=== PATIENT | male | born 1950 | race Caucasian/White ===

== ENCOUNTER 2018-02-14 06:27 | Day surgery (SDC) | payer MEDICARE, OTHER ==
[~2018-02-14 06:27] MED LIST: Sodium Chloride 0.9% 1000 ML 1,000 ML IV SCH
[2018-02-14] MEDS ORDERED: DIPRIVAN 200 MG/20 ML IV ONE (06:28)
[2018-02-14] MEDS ORDERED: Sodium Chloride 0.9% 1000 ML 1,000 ML ONE (07:00)
--- NOTE | 2018-02-14 09:35 | OP ---
SURGERY DATE/TIME: 02/14/2018 0851 PREOPERATIVE DIAGNOSIS: Abdominal pain. POSTOPERATIVE DIAGNOSIS: Normal colon. PROCEDURE: Colonoscopy. SURGEON: Dr. Vera. ANESTHESIA: MAC. Medications given by anesthesia department. HISTORY: The patient is a 67 year-old white male reporting he has abdominal pain mid periumbilical area that has not changed bowel habits. He reports that he has had previous colonoscopies which were normal. The patient was felt the need to have endoscopic evaluation. He was appraised of the risks of the procedure including the risk of perforation, phlebitis, untoward reaction to medication, bleeding and missed lesions. The patient verbalized his understanding and desired to have the procedure performed. DESCRIPTION OF PROCEDURE: The patient was given the medications by the anesthesia department. He had continuous pulse oximetry, ECG monitoring, intermittent blood pressure monitoring and tidal CO2 monitoring during the examination. He was placed in the left lateral decubitus position. A digital rectal examination was performed and revealed normal anal sphincter tone and no masses and normal prostate. The flexible Olympus pediatric colonoscope was used to intubate the rectum. A view of the colon was developed sequentially to the cecum. Upon insertion and withdrawal, including a retroflex view in the rectum, no mucosal lesions were encountered. The scope was removed from the patient who tolerated the procedure well and was sent back to OP recovery in good condition. The prep was noted to be fair to good.
[2018-02-14 09:43] VITALS: O2SAT 98
[2018-02-14 10:05] VITALS: BP 152/73; PULSE 50
== END 2018-02-14 10:21 | disposition home or self-care (01) ==
LOC: SDC 06:27
PROVIDERS: ATTEND Family Medicine
DX: R10.33 Periumbilical pain (principal)
CPT/HCPCS: J2704

== ENCOUNTER 2018-07-22 23:09 | Observation (INO) | payer MEDICARE, OTHER ==
--- NOTE | 2018-07-22 23:52 | ERPHSYRPT ---
- History of Present Illness Time Seen by Provider: 07/22/18 23:35 Historian: patient Exam Limitations: no limitations Patient Subjective Stated Complaint: Chest pain Triage Nursing Assessment: Patient brought into ER per EMS for complaints of chest pain. Patient states his chest pain is 0 now. Patient received Nitro X 1 and ASA 324mg per EMS upon arrival. Patient states chest pain started while at rest and lasted approximately 10 minutes. Patient A+O X 3. Patient's lungs noted to be clear A/P waqas. S1-S2 heart tones audible. Patient states he was seen today at [facility] ER for sinus problems and was prescribed Prednisone today, which he took around 1600. Physician History: 67-year-old white male with history of atherosclerotic coronary artery disease, migraines, stroke, diabetes type 2, high blood pressure, chronic back pain, fractures, osteoarthritis, anxiety, stage III kidney failure, pulmonary hypertension Patient arrives with complaint of anterior chest pain described as a dull pressure which began approximately 30 minutes prior to arrival he states he wasn 't really short of breath but he is anxious. He states that he has been seen at [facility] earlier today secondary to feeling of pressure in his left ear he was placed on prednisone he states he took his prednisone and he feels like his blood sugars had, up he stated they were around 325 at home. He states that he then began to have the above pain he took one nitroglycerin he was seen by the medics who gave him 4 baby aspirin will one nitroglycerin pain resolved after approximately 10 minutes. Currently patient is pain-free he has no nausea he is not short of breath at this time. Patient does state that he has been complaining of a rash of his lower extremities and chest and this is part of the reason he was given the prednisone. Past medical history includes cardiac stent, atherosclerotic coronary artery disease, migraines, stroke, diabetes type 2, high blood pressure, fracture of the patient's left knee, arthritis, anxiety, chronic back pain, stage III Kidney failure, pulmonary hypertension Past surgical history includes cardiac catheterization, orthopedic surgery l ( left knee meniscal repair), tonsillectomy Patient is chronically on oxycodone/acetaminophen as well as lorazepam Timing/Duration: today (30 minutes prior to arri) Activities at Onset: none Quality: dullness, pressure Location: substernal, other (anterior chest from breast to breast) Chest Pain Radiation: no radiation Severity of Pain-Max: moderate Severity of Pain-Current: none Modifying Factors: Improves With: other (patient had recently started prednisone today) Associated Symptoms: rash (Patient feels like he has had a rash on his lower extremities for several ), No nausea, No vomiting, No palpitations, No heartburn , No abdominal pain, No shortness of breath, No cough, No hurts to breathe, No diaphoresis, No chills, No fever, No fatigue, No weakness, No swelling/lump in chest, No syncope Prior Chest Pain/Cardiac Workup: cardiac cath (cardiac catheter with car) Nitro Today/Relief: 0.4 mg x 2 (nitroglycerin 0.4 mg at home, 0.4 mg per medics) Aspirin Treatment Today: 81 mg x 4, provided by EMS Allergies/Adverse Reactions: acetaminophen [From Vicodin] Allergy (Intermediate, Verified 07/22/18 23:31) Nausea and Vomiting hydrocodone bitartrate [From Vicodin] Allergy (Intermediate, Verified 07/22/18 23:31) Nausea and Vomiting Home Medications: Clopidogrel Bisulfate 75 mg [PLAVIX 75 MG Tablet] 75 mg PO DAILY 07/16/13 [History] Doxazosin Mesylate [Cardura] 4 mg PO TID 07/16/13 [History] Albuterol Sulfate [Ventolin] 5 mg IH Q4HPRN PRN 02/12/18 [History] Aspirin EC 81 mg [Ecotrin 81 mg] 81 mg PO DAILY 02/12/18 [History] Bosentan [Tracleer] 125 mg PO BID 02/12/18 [History] Fluticasone/Salmeterol Disc [Advair 250-50 Diskus 14 Dose] 1 each IH DAILY 02/12/18 [History] Glimepiride 4 mg [Amaryl 4 mg] 4 mg PO DAILY 02/12/18 [History] Hydralazine HCl 50 mg PO TID 02/12/18 [History] Insulin NPH Human Isophane [Novolin N] 12 unit SQ AC 02/12/18 [History] Isosorbide Mononitrate 10 mg PO BID 02/12/18 [History] Lorazepam [Ativan] 2 mg PO BID 02/12/18 [History] Montelukast Sodium 10 mg [Singulair 10 MG] 10 mg PO DAILY 02/12/18 [History] Oxycodone HCl/Acetaminophen [Oxycodone-Acetaminophen 10-325] 0.5 tablet PO BID 02/12/18 [History] Testosterone Undecanoate [Aveed] 0.5 mg IM WEEKLY 02/12/18 [History] Topiramate 100 mg [Topamax 100 MG] 100 mg PO DAILY 02/12/18 [History] Torsemide 10 mg PO DAILY 02/12/18 [History] Nitroglycerin 0.4 mg (Ed) [Nitrostat 0.4 MG (ED)] 0.4 mg SL STAT 02/13/18 [History] Acetaminophen [Tylenol] 325 mg PO Q8HPRN PRN 02/14/18 [History] Ferrous Sulfate [Iron] 325 mg PO BID 02/14/18 [History] Multivitamin [Multivitamins] 1 each PO DAILY 02/14/18 [History] Oxymetazoline HCl [Afrin] 15 ml NS DAILY 02/14/18 [History] Hx Tetanus, Diphtheria Vaccination/Date Given: Yes Hx Influenza Vaccination/Date Given: No Hx Pneumococcal Vaccination/Date Given: No Immunizations Up to Date: Yes - Review of Systems Constitutional: No Fever, No Chills Eyes: No Symptoms Ears, Nose, & Throat: Ear Pain (pressure sensation left ear for several weeks given prednisone for this at [facility] today) Respiratory: No Cough, No Dyspnea Cardiac: Chest Pain Abdominal/Gastrointestinal: No Abdominal Pain, No Nausea, No Vomiting, No Diarrhea Musculoskeletal: No Back Pain, No Neck Pain Skin: Rash (patient feels like he's had a rash on his lower legs and upper chest and back for several weeks) Neurological: No Dizziness, No Focal Weakness, No Sensory Changes Psychological: No Symptoms Endocrine: No Symptoms All Other Systems: Reviewed and Negative - Past Medical History Pertinent Past Medical History: Yes Neurological History: Migraines, Stroke ENT History: No Pertinent History Cardiac History: Hypertension, Other Respiratory History: Other Endocrine Medical History: Diabetes Type II Musculoskeletal History: Fractures, Osteoarthritis GI Medical History: No Pertinent History History: No Pertinent History Psycho-Social History: Anxiety Male Reproductive Disorders: No Pertinent History Other Medical History: stage 3 kidney failure (30-35%), pulmonary hypertension. Fractured L knee when he had a meniscus repair - Past Surgical History Past Surgical History: Yes Neuro Surgical History: No Pertinent History Cardiac: Cardiac Catheterization Respiratory: No Pertinent History Gastrointestinal: No Pertinent History Genitourinary: No Pertinent History Musculoskeletal: Orthopedic Surgery Male Surgical History: No Pertinent History Other Surgical History: tonsils,lt knee surgery - Social History Smoking Status: Former smoker Exposure to second hand smoke: No Drug Use: none Patient Lives Alone: No - Nursing Vital Signs Nursing Vital Signs: Initial Vital Signs Temperature 98.8 F 07/22/18 23:19 Pulse Rate 90 07/22/18 23:19 Respiratory Rate 17 07/22/18 23:19 Blood Pressure 186/78 07/22/18 23:19 O2 Sat by Pulse Oximetry 97 07/22/18 23:19 Pain Scale Pain Intensity 0 - Physical Exam General Appearance: no apparent distress, alert Eye Exam: PERRL/EOMI, eyes nml inspection Ears, Nose, Throat Exam: normal ENT inspection, moist mucous membranes Neck Exam: normal inspection, non-tender, supple, full range of motion Respiratory Exam: normal breath sounds, lungs clear, No respiratory distress Cardiovascular Exam: regular rate/rhythm, normal heart sounds, normal peripheral pulses, capillary refill <2 sec, No murmur, No friction rub, No tachycardia, No bradycardia, No irregular Gastrointestinal/Abdomen Exam: soft, No tenderness, No mass Back Exam: normal inspection, No CVA tenderness, No vertebral tenderness Extremity Exam: normal inspection, normal range of motion Neurologic Exam: alert, oriented x 3, cooperative, computer patternmaker II-XII nml as tested, normal mood/affect, sensation nml, No motor deficits Skin Exam: other (skin vague chronic skin changes lower extremities no obvious rash) SpO2 Interpretation: normal (96%) SpO2: 96 Oxygen Delivery: Room Air - Course Nursing assessment & vital signs reviewed: Yes EKG Interpreted by Me: RATE (90 bpm), NORMAL AXIS, Other (EKG: Sinus arrhythmia , 90 bpm, normal axis, no acute ST or T wave changes are noted, no old EKG for comparson) - Radiology Exams Chest X-ray Interpretation: Interpreted by me (no acute disease process noted) Ordered Tests: Active Orders 24 hr Category Date Time Status Accucheck STAT Care 07/22/18 23:37 Active Cell Builder STAT Care 07/22/18 23:36 Active EKG-ER Only STAT Care 07/22/18 23:35 Active IV Insertion STAT Care 07/22/18 23:35 Active Pulse Oximetry (ED) STAT Care 07/22/18 23:35 Active CHEST 1 VIEW (PORTABLE) Stat Exams 07/22/18 23:36 Taken AMYLASE Stat Lab 07/22/18 23:55 Completed CBC W DIFF Stat Lab 07/22/18 23:55 Completed CMP Stat Lab 07/22/18 23:55 Completed D-DIMER QUANTITATION Stat Lab 07/22/18 23:55 Completed LIPASE Stat Lab 07/22/18 23:55 Completed PROTIME WITH INR Stat Lab 07/22/18 23:55 Completed PTT Stat Lab 07/22/18 23:55 Completed TROPONIN Q3H Lab 07/22/18 23:55 Completed TROPONIN Q3H Lab 07/23/18 02:45 Ordered TROPONIN Q3H Lab 07/23/18 05:45 Ordered TROPONIN Q3H Lab 07/23/18 08:45 Ordered TROPONIN Q3H Lab 07/23/18 11:45 Ordered Lab/Rad Data: Laboratory Result Diagrams 07/22/18 23:55 07/22/18 23:55 Laboratory Results 07/22/18 07/22/18 07/22/18 Range/Units 23:55 23:55 23:55 WBC (4.0-10.5) K/mm3 RBC (4.1-5.6) M/mm3 Hgb (12.5-18.0) gm/dl Hct (42-50) % MCV (78-100) fl MCH (26-32) pg MCHC (32-36) g/dl RDW (11.5-14.0) % Plt Count (150-450) K/mm3 MPV (6-9.5) fl Gran % (36.0-66.0) % Eos # (Auto) (0-0.5) Absolute Lymphs (auto) (1.0-4.6) Absolute Monos (auto) (0.0-1.3) Lymphocytes % (24.0-44.0) % Monocytes % (0.0-12.0) % Eosinophils % (0.00-5.0) % Basophils % (0.0-0.4) % Absolute Granulocytes (1.4-6.9) Basophils # (0-0.4) PT 12.5 (8.83-12.87) SECONDS INR 1.07 (0.8-3.0) APTT 30.9 (24.1-36.1) SECONDS D-Dimer 1096 H* (215-500) ng/mL Sodium (137-145) mmol/L Potassium (3.5-5.1) mmol/L Chloride (98-107) mmol/L Carbon Dioxide (22-30) mmol/L Anion Gap (5-15) MEQ/L BUN (9-20) mg/dL Creatinine (0.66-1.25) mg/dL Estimated GFR ML/MIN Glucose (74-106) mg/dL Calcium (8.4-10.2) mg/dL Total Bilirubin (0.2-1.3) mg/dL AST (17-59) U/L ALT (0-50) U/L Alkaline Phosphatase (38-126) U/L Troponin I 0.013 (0.000-0.034) ng/mL Serum Total Protein (6.3-8.2) g/dL Albumin (3.5-5.0) g/dL Amylase 86 (30-110) U/L Lipase 118 (23-300) U/L 07/22/18 07/22/18 Range/Units 23:55 23:55 WBC 6.1 (4.0-10.5) K/mm3 RBC 3.04 L (4.1-5.6) M/mm3 Hgb 9.3 L (12.5-18.0) gm/dl Hct 27.9 L (42-50) % MCV 91.8 (78-100) fl MCH 30.5 (26-32) pg MCHC 33.3 (32-36) g/dl RDW 13.4 (11.5-14.0) % Plt Count 135 L (150-450) K/mm3 MPV 12.1 H (6-9.5) fl Gran % 92.1 H (36.0-66.0) % Eos # (Auto) 0.02 (0-0.5) Absolute Lymphs (auto) 0.40 L (1.0-4.6) Absolute Monos (auto) 0.05 (0.0-1.3) Lymphocytes % 6.6 L (24.0-44.0) % Monocytes % 0.8 (0.0-12.0) % Eosinophils % 0.3 (0.00-5.0) % Basophils % 0.2 (0.0-0.4) % Absolute Granulocytes 5.61 (1.4-6.9) Basophils # 0.01 (0-0.4) PT (8.83-12.87) SECONDS INR (0.8-3.0) APTT (24.1-36.1) SECONDS D-Dimer (215-500) ng/mL Sodium 137 (137-145) mmol/L Potassium 5.1 (3.5-5.1) mmol/L Chloride 107 (98-107) mmol/L Carbon Dioxide 19 L (22-30) mmol/L Anion Gap 15.9 H (5-15) MEQ/L BUN 47 H (9-20) mg/dL Creatinine 3.22 H (0.66-1.25) mg/dL Estimated GFR 20.4 ML/MIN Glucose 330 H (74-106) mg/dL Calcium 8.9 (8.4-10.2) mg/dL Total Bilirubin 0.40 (0.2-1.3) mg/dL AST 27 (17-59) U/L ALT 26 (0-50) U/L Alkaline Phosphatase 69 (38-126) U/L Troponin I (0.000-0.034) ng/mL Serum Total Protein 6.5 (6.3-8.2) g/dL Albumin 4.0 (3.5-5.0) g/dL Amylase (30-110) U/L Lipase (23-300) U/L - Progress Progress: improved Air Movement: fair Progress Note: 07/22/18 23:55 This is a 67-year-old white male with history of migraines, stroke, diabetes type 2, high blood pressure, atherosclerotic coronary artery disease, arthritis , anxiety, stage III renal failure, pulmonary hypertension, chronic back pain He states that he has been experiencing pressure in the left side of his ear as well as he feels like he has a rash on his lower extremities upper chest and back. He states that he presented to [facility] and was placed on steroids he was a apparently referred to a your nose and throat specialist. He states that he took his prednisone today than this evening he began to feel as if his heart was a running fast he states he felt like he feels 1 his blood sugars were elevated and noticed that his blood sugar was around 325. He states that he then began to have symptoms of a pressure in his anterior chest he states he sat down this did not go away he states he then took a nitroglycerin and he had his summoned the medics. The patient was given aspirin 3 124 mg by the medics and a second nitroglycerin patient states the pain went away within 10 minutes and was gone before he arrives. He states he really was not short of breath but he did feel anxiety he does have a history of atherosclerotic coronary artery disease he has not had a heart attack he does state that he had a stent placed. Currently the patient appears to be stable. EKG remarkable for sinus arrhythmia 90 beats for minute normal axis no acute ST or T wave changes are noted there are no old EKGs for comparison. CBC CMP troponin amylase lipase chest x-ray EKG PT PTT d-dimer have been ordered. Patient appears to be stable at this time. 07/23/18 01:08 Patient with no further pain. Patient's troponin within normal limits of 0.013 patient's chemistry is remarkable for a glucose of 3:30 BUN 47 creatinine 3.22 , GFR is 20.4 Sodium is 137 potassium 5.1 chloride 107. Amylase and lipase are within normal limits Patient's white cells 6.1 hemoglobin 9.3 hematocrit 27.9 Unfortunately patient's d-dimer is 1096 It is noted however that patient does have chronic renal failure, patient does not have signs or symptoms of pulmonary embolism. .. Chest x-ray no acute disease process noted. I've discussed the patient's case with Dr. Vera Will go ahead and place patient on observation telemetry obtain serial troponins. Do not feel that patient has signs or symptoms of pulmonary embolism and will not place patient on Lovenox at this time this is discussed with Dr. Vera. We'll not perform CTA, on this patient secondary to GFR of 20. Patient appears to be stable. Will go ahead and admit patient to observation. It is noted the patient had a glucose of 3:30 on his chemistry and an Accu-Chek of 350 however he states he took insulin prior to arrival. Will place patient on every 4 hour Accu-Cheks begin with the low dose sliding scale insulin coverage. - Departure Time of Disposition: 01:12 Departure Disposition: Observation Clinical Impression: Hyperglycemia, History of chronic renal failure Chest pain Qualifiers: Chest pain type: unspecified Qualified Code(s): R07.9 - Chest pain, unspecified Condition: Fair Critical Care Time: No Referrals: JAVIER VERA [Primary Care Provider] -
[2018-07-22 23:59] LABS: BASOPHIL % 0.2 % (0.0-0.4); Basophil (Absolute #) 0.01 (0-0.4); Eosinophil % 0.3 % (0.00-5.0); Eosinophil (Absolute #) 0.02 (0-0.5); Granulocyte Absolute (ANC) 5.61 (1.4-6.9); Granulocytes % 92.1 % (36.0-66.0); Hematocrit 27.9 % (42-50); Hemoglobin 9.3 gm/dl (12.5-18.0); Lymphocytes % 6.6 % (24.0-44.0); Mean Cell Volume 91.8 fl (78-100); Mean Corpuscular Hgb Concent. 33.3 g/dl (32-36); Mean Platelet Volume 12.1 fl (6-9.5); Monocyte (Absolute #) 0.05 (0.0-1.3); Monocytes % 0.8 % (0.0-12.0); Platelet Count 135 K/mm3 (150-450); Red Blood Count 3.04 M/mm3 (4.1-5.6); Red Cell Distribution Width 13.4 % (11.5-14.0); White Blood Count 6.1 K/mm3 (4.0-10.5)
[2018-07-23 00:02] LABS: Mean Corpuscular Hemoglobin 30.5 pg (26-32)
[2018-07-23 00:29] LABS: INR 1.07 (0.8-3.0)
[2018-07-23 00:31] LABS: PTT 30.9 SECONDS (24.1-36.1)
[2018-07-23 00:34] LABS: AMYLASE 86 U/L (30-110); ANION GAP 15.9 MEQ/L (5-15); BILIRUBIN,TOTAL 0.4 mg/dL (0.2-1.3); Calcium 8.9 mg/dL (8.4-10.2); Creatinine 1 3.22 mg/dL (0.66-1.25); LIPASE 118 U/L (23-300); Potassium 5.1 mmol/L (3.5-5.1); Total Protein 6.5 g/dL (6.3-8.2)
[2018-07-23] MEDS ORDERED: NovoLOG Insulin SQ PRN (01:40)
[2018-07-23] MEDS ORDERED: Ativan 1 MG PO PRN (01:40)
[2018-07-23] MEDS ORDERED: Sodium Chloride 0.9% 1000 ML 1,000 ML IV SCH (01:40)
[2018-07-23 03:47] LABS: Slide Review 1 YES
[2018-07-23 05:50] LABS: BASOPHIL % 0.2 % (0.0-0.4); Basophil (Absolute #) 0.02 (0-0.4); Eosinophil % 0.2 % (0.00-5.0); Eosinophil (Absolute #) 0.02 (0-0.5); Granulocyte Absolute (ANC) 7.49 (1.4-6.9); Granulocytes % 85.5 % (36.0-66.0); Hematocrit 27.2 % (42-50); Hemoglobin 9.1 gm/dl (12.5-18.0); Lymphocyte (Absolute #) 0.67 (1.0-4.6); Lymphocytes % 7.6 % (24.0-44.0); Mean Cell Volume 91.6 fl (78-100); Mean Corpuscular Hemoglobin 30.6 pg (26-32); Mean Corpuscular Hgb Concent. 33.5 g/dl (32-36); Mean Platelet Volume 12.4 fl (6-9.5); Monocyte (Absolute #) 0.57 (0.0-1.3); Monocytes % 6.5 % (0.0-12.0); Platelet Count 156 K/mm3 (150-450); Red Blood Count 2.97 M/mm3 (4.1-5.6); Red Cell Distribution Width 13.4 % (11.5-14.0); White Blood Count 8.8 K/mm3 (4.0-10.5)
[2018-07-23 06:14] LABS: ALBUMIN 3.6 g/dL (3.5-5.0); ANION GAP 13.5 MEQ/L (5-15); BILIRUBIN,TOTAL 0.4 mg/dL (0.2-1.3); Calcium 8.9 mg/dL (8.4-10.2); Creatinine 1 3.18 mg/dL (0.66-1.25); Potassium 5.1 mmol/L (3.5-5.1); Total Protein 6.2 g/dL (6.3-8.2)
[2018-07-23 07:14] VITALS: BP 149/65; PULSE 50; O2SAT 96
--- NOTE | 2018-07-23 07:58 | PCM.DCORD ---
- Discharge Discharge Date: 07/23/18 Disposition: Home, Self-Care Condition: Stable Prescriptions: Continue Doxazosin Mesylate [Cardura] 8 mg PO BID Clopidogrel Bisulfate 75 mg [PLAVIX 75 MG Tablet] 75 mg PO DAILY Testosterone Undecanoate [Aveed] 0.5 mg IM WEEKLY Lorazepam [Ativan] 2 mg PO BID Topiramate 100 mg [Topamax 100 MG] 100 mg PO DAILY Montelukast Sodium 10 mg [Singulair 10 MG] 10 mg PO DAILY Glimepiride 4 mg [Amaryl 4 mg] 2 mg PO DAILY Torsemide 10 mg PO DAILY Hydralazine HCl 50 mg PO TID Isosorbide Mononitrate 10 mg PO BID Bosentan [Tracleer] 125 mg PO BID Aspirin EC 81 mg [Ecotrin 81 mg] 81 mg PO DAILY Albuterol Sulfate [Ventolin] 5 mg IH Q4HPRN PRN PRN Reason: Shortness Of Breath/Wheezing Fluticasone/Salmeterol Disc [Advair 250-50 Diskus 14 Dose] 1 each IH BID Oxycodone HCl/Acetaminophen [Oxycodone-Acetaminophen 10-325] 0.5 tablet PO BID PRN PRN Reason: Pain Insulin NPH Human Isophane [Novolin N] 10 unit SQ DAILY Nitroglycerin 0.4 mg (Ed) [Nitrostat 0.4 MG (ED)] 0.4 mg SL STAT Ferrous Sulfate [Iron] 65 mg PO BID Erenumab-Aooe [Aimovig Autoinjector (2 Pack)] 70 mg SQ UD Ranitidine HCl 300 mg PO DAILY Ranolazine 500 MG [Ranexa 500 MG] 50 mg PO BID Additional Instructions: Follow up with Doping Supervisor today or tomorrow Follow up with: JAVIER ELLER [Primary Care Provider] - 1 Week
[2018-07-23] MEDS ORDERED: OXYCODONE-ACETAMINOPHEN 10-325 PO PRN (08:50)
[2018-07-23] MEDS ORDERED: VENTOLIN 20 ML BOTTLE IH PRN (08:50)
--- NOTE | 2018-07-23 08:55 | XRAY ---
Indication: Chest pain. Comparison: May 09, 2015. Portable apical lordotic chest remains clear. Heart is not enlarged. Bony thorax intact again with mild degenerative changes. No new/acute findings.
[2018-07-23] MEDS ORDERED: AMARYL 4 MG PO SCH (09:00)
[2018-07-23] MEDS ORDERED: Nitrostat 0.4 MG (ED) SL SCH (09:00)
[2018-07-23] MEDS ORDERED: TESTOSTERONE UNDECANOATE IM SCH (09:00)
[2018-07-23] MEDS ORDERED: ERENUMAB AOOE 70 MG SQ SCH (09:00)
[2018-07-23] MEDS ORDERED: Nitrostat 0.4 MG Tablet SL PRN (09:19)
[2018-07-23] MEDS ORDERED: PROVENTIL 2.5 MG/3 ML NEB IH PRN (09:22)
[2018-07-23] MEDS ORDERED: MEDICATION INTERVENTION MC SCH (09:30)
[2018-07-23] MEDS ORDERED: PLAVIX 75 MG Tablet PO SCH (10:00)
[2018-07-23] MEDS ORDERED: Singulair 10 MG PO SCH (10:00)
[2018-07-23] MEDS ORDERED: TORSEMIDE 10 MG PO SCH (10:00)
[2018-07-23] MEDS ORDERED: ADVAIR 250-50 DISKUS 14 DOSE IH SCH (10:00)
[2018-07-23] MEDS ORDERED: ISORDIL PO SCH (10:00)
[2018-07-23] MEDS ORDERED: NON-FORMULARY ITEM (Ranitidine Hcl [Ranitidine Hcl] 300 MG) PO SCH (10:00)
[2018-07-23] MEDS ORDERED: Pepcid 20 MG PO SCH (10:00)
[2018-07-23] MEDS ORDERED: monoKET 20 MG PO SCH (10:00)
[2018-07-23] MEDS ORDERED: ECOTRIN 81 MG PO SCH ×2 (10:00)
[2018-07-23] MEDS ORDERED: CARDURA 2 MG PO SCH (10:00)
[2018-07-23] MEDS ORDERED: Topamax 100 MG PO SCH (10:00)
[2018-07-23] MEDS ORDERED: DEMADEX 20 MG PO SCH (10:00)
[2018-07-23] MEDS ORDERED: NON-FORMULARY ITEM (Hydralazine Hcl [Hydralazine Hcl] 50 MG) PO SCH (10:00)
[2018-07-23] MEDS ORDERED: Ativan 1 MG PO SCH (10:00)
[2018-07-23] MEDS ORDERED: ISOSORBIDE MONONITRATE 10 MG PO SCH (10:00)
[2018-07-23] MEDS ORDERED: Ranexa 500 MG PO SCH (10:00)
[2018-07-23] MEDS ORDERED: Advair Hfa 115/21 Common canister IH SCH (10:00)
[2018-07-23] MEDS ORDERED: NON-FORMULARY ITEM (Lorazepam [Ativan] 2 MG) PO SCH (10:00)
[2018-07-23] MEDS ORDERED: FEOSOL 325 MG PO SCH (10:00)
[2018-07-23] MEDS ORDERED: BOSENTAN 125 MG PO SCH (10:00)
[2018-07-23] MEDS ORDERED: Novolin N SQ SCH (10:00)
[2018-07-23] MEDS ORDERED: Apresoline 25 MG TABLET PO SCH (10:00)
== END 2018-07-23 09:45 | disposition home or self-care (01) ==
LOC: ED 23:09 → MED SURG 07-23 01:37
PROVIDERS: ADMIT Family Medicine; ATTEND Family Medicine
DX: R07.9 Chest pain, unspecified (principal); I25.10 Atherosclerotic heart disease of native coronary artery without angina pectoris; E11.9 Type 2 diabetes mellitus without complications; M19.90 Unspecified osteoarthritis, unspecified site; F41.9 Anxiety disorder, unspecified; M54.9 Dorsalgia, unspecified; G89.29 Other chronic pain; I12.9 Hypertensive chronic kidney disease with stage 1 through stage 4 chronic kidney disease, or unspecified chronic kidney disease; N18.3 Chronic kidney disease, stage 3 (moderate); Z86.73 Personal history of transient ischemic attack (TIA), and cerebral infarction without residual deficits; Z79.4 Long term (current) use of insulin
CPT/HCPCS: 36415; 71045; 80053; 82150; 82962; 83036; 83690; 84484; 85025; 85379; 85610; 85730; 93005; 93041; 93268; 94760; 99285; A9270-GY; G0378

== ENCOUNTER 2018-12-16 23:18 | Emergency (ER) | payer MEDICARE, OTHER ==
[2018-12-16] MEDS ORDERED: DUONEB 0.5-3 MG/3 ml Neb IH ONE (23:45)
[2018-12-16 23:56] LABS: BASOPHIL % 0.6 % (0.0-0.4); Basophil (Absolute #) 0.04 (0-0.4); Eosinophil % 7.8 % (0.00-5.0); Eosinophil (Absolute #) 0.51 (0-0.5); Granulocyte Absolute (ANC) 4.62 (1.4-6.9); Granulocytes % 70.2 % (36.0-66.0); Hematocrit 25.2 % (42-50); Hemoglobin 8.3 gm/dl (12.5-18.0); Lymphocyte (Absolute #) 0.85 (1.0-4.6); Lymphocytes % 12.9 % (24.0-44.0); Mean Corpuscular Hgb Concent. 32.9 g/dl (32-36); Mean Platelet Volume 12.3 fl (6-9.5); Monocyte (Absolute #) 0.56 (0.0-1.3); Monocytes % 8.5 % (0.0-12.0); Platelet Count 131 K/mm3 (150-450); Red Blood Count 2.68 M/mm3 (4.1-5.6); Red Cell Distribution Width 12.5 % (11.5-14.0); White Blood Count 6.6 K/mm3 (4.0-10.5)
[2018-12-16 23:59] LABS: Mean Corpuscular Hemoglobin 30.9 pg (26-32)
[2018-12-17 00:04] LABS: ALBUMIN 4.2 g/dL (3.5-5.0); ANION GAP 13.3 MEQ/L (5-15); BILIRUBIN,TOTAL 0.4 mg/dL (0.2-1.3); Calcium 9.5 mg/dL (8.4-10.2); Creatinine 1 3.26 mg/dL (0.66-1.25); Potassium 4.7 mmol/L (3.5-5.1); Total Protein 7.1 g/dL (6.3-8.2)
--- NOTE | 2018-12-17 00:05 | ERPHSYRPT ---
- History of Present Illness Time Seen by Provider: 12/16/18 23:30 Source: patient Patient Subjective Stated Complaint: went to [facility] yesterday was given medication patient has been fighting a cold for about 3 weeks says its g etting worse nad the medications they gave him yesterday arent helping Triage Nursing Assessment: patient alert and oreitnedx3, able to ambulate by self, gait is steady, lung sounds buialteral some crackles , intermittant moist cough, , pulse equal bialteral radius, no edema noted, skin warm dry and intact. pupils perrla2, throat was pink no swelling or blisters noted. Physician History: 68 y/o diabetic white male presents with 3 week h/o flu like sx including cough and sore throat. [facility] to [facility] yesterday. given a steroid injection, rx for tessalon perles, and cefdinir anitbx. sx not much better. pt states his reaction to hydrocodone in n/v. pt takes oxycodone chronically for migraine headaches. pt does have chest burning with coughing. pt has a h/o recurrent bronchitis Timing/Duration: week(s) (3) Cough Quality/Degree: mild, dry cough Possible Cause: occasional episodes Modifying Factors: Improves With: coughing Associated Symptoms: cough, shortness of breath (mild) Allergies/Adverse Reactions: acetaminophen [From Vicodin] Allergy (Intermediate, Verified 07/22/18 23:31) Nausea and Vomiting hydrocodone bitartrate [From Vicodin] Allergy (Intermediate, Verified 07/22/18 23:31) Nausea and Vomiting Home Medications: Clopidogrel Bisulfate 75 mg [PLAVIX 75 MG Tablet] 75 mg PO DAILY 07/16/13 [History] Doxazosin Mesylate [Cardura] 8 mg PO BID 07/16/13 [History] Albuterol Sulfate [Ventolin] 5 mg IH Q4HPRN PRN 02/12/18 [History] Aspirin EC 81 mg [Ecotrin 81 mg] 81 mg PO DAILY 02/12/18 [History] Bosentan [Tracleer] 125 mg PO BID 02/12/18 [History] Fluticasone/Salmeterol Disc [Advair 250-50 Diskus 14 Dose] 1 each IH BID 02/12/18 [History] Glimepiride 4 mg [Amaryl 4 mg] 2 mg PO DAILY 02/12/18 [History] Hydralazine HCl 50 mg PO TID 02/12/18 [History] Insulin NPH Human Isophane [Novolin N] 10 unit SQ DAILY 02/12/18 [History] Isosorbide Mononitrate 10 mg PO BID 02/12/18 [History] Lorazepam [Ativan] 2 mg PO BID 02/12/18 [History] Montelukast Sodium 10 mg [Singulair 10 MG] 10 mg PO DAILY 02/12/18 [History] Oxycodone HCl/Acetaminophen [Oxycodone-Acetaminophen 10-325] 0.5 tablet PO BID PRN 02/12/18 [History] Testosterone Undecanoate [Aveed] 0.5 mg IM WEEKLY 02/12/18 [History] Topiramate 100 mg [Topamax 100 MG] 100 mg PO DAILY 02/12/18 [History] Torsemide 10 mg PO DAILY 02/12/18 [History] Nitroglycerin 0.4 mg (Ed) [Nitrostat 0.4 MG (ED)] 0.4 mg SL STAT 02/13/18 [History] Ferrous Sulfate [Iron] 65 mg PO BID 02/14/18 [History] Erenumab-Aooe [Aimovig Autoinjector (2 Pack)] 70 mg SQ UD 07/23/18 [History] Ranitidine HCl 300 mg PO DAILY 07/23/18 [History] Ranolazine 500 MG [Ranexa 500 MG] 50 mg PO BID 07/23/18 [History] Hx Tetanus, Diphtheria Vaccination/Date Given: Yes Hx Influenza Vaccination/Date Given: Yes Hx Pneumococcal Vaccination/Date Given: Yes Immunizations Up to Date: Yes - Review of Systems Constitutional: No Symptoms Eyes: No Symptoms Ears, Nose, & Throat: Hoarse, Other (sore throat) Respiratory: Cough, Dyspnea (mild) Cardiac: No Symptoms Abdominal/Gastrointestinal: No Symptoms Genitourinary Symptoms: No Symptoms Musculoskeletal: No Symptoms Skin: No Symptoms Neurological: No Symptoms Psychological: No Symptoms Endocrine: No Symptoms Hematologic/Lymphatic: No Symptoms Immunological/Allergic: No Symptoms All Other Systems: Reviewed and Negative - Past Medical History Pertinent Past Medical History: Yes Neurological History: Migraines, Stroke ENT History: No Pertinent History Cardiac History: Hypertension, Other Respiratory History: Other Endocrine Medical History: Diabetes Type II Musculoskeletal History: Fractures, Osteoarthritis GI Medical History: No Pertinent History History: No Pertinent History Psycho-Social History: Anxiety Male Reproductive Disorders: No Pertinent History Other Medical History: stage 3 kidney failure (30-35%), pulmonary hypertension. Fractured L knee when he had a meniscus repair - Past Surgical History Past Surgical History: Yes Neuro Surgical History: No Pertinent History Cardiac: Cardiac Catheterization, Cardiac Stent Respiratory: No Pertinent History Gastrointestinal: No Pertinent History Genitourinary: No Pertinent History Musculoskeletal: Orthopedic Surgery Male Surgical History: No Pertinent History Other Surgical History: tonsils,lt knee surgery, x1 cardiac stent, knee replacement right knee, right shoulder rotator cuff sx - Social History Smoking Status: Never smoker Exposure to second hand smoke: No Drug Use: none Patient Lives Alone: No - Nursing Vital Signs Nursing Vital Signs: Initial Vital Signs Temperature 98.5 F 12/16/18 23:19 Pulse Rate 72 12/16/18 23:19 Respiratory Rate 20 12/16/18 23:19 Blood Pressure 203/78 12/16/18 23:19 O2 Sat by Pulse Oximetry 99 12/16/18 23:19 Pain Scale Pain Intensity 0 - Physical Exam General Appearance: mild distress, alert, anxiety Eye Exam: PERRL/EOMI, eyes nml inspection Ears, Nose, Throat Exam: normal ENT inspection, moist mucous membranes Neck Exam: normal inspection, non-tender, supple, full range of motion Respiratory Exam: normal breath sounds, lungs clear, airway intact, No chest tenderness, No respiratory distress Cardiovascular Exam: regular rate/rhythm, normal heart sounds, normal peripheral pulses Gastrointestinal/Abdomen Exam: soft, normal bowel sounds, No tenderness Rectal Exam: not done Back Exam: normal inspection, normal range of motion, No CVA tenderness, No vertebral tenderness Extremity Exam: normal inspection, normal range of motion, pelvis stable Neurologic Exam: alert, oriented x 3, cooperative, azure developer II-XII nml as tested Skin Exam: normal color, warm, dry Lymphatic Exam: No adenopathy SpO2 Interpretation: normal SpO2: 99 O2 Delivery: Room Air - Course Nursing assessment & vital signs reviewed: Yes EKG Interpreted by Me: RATE (69), Sinus Rhythm, NORMAL AXIS, NORMAL INTERVALS, NORMAL QRS, Non-specific ST Changes, Other (no change compared to ekg dated ) Ordered Tests: Active Orders 24 hr Category Date Time Status CHEST 1 VIEW (PORTABLE) Stat Exams 12/16/18 23:33 Taken CBC W DIFF Stat Lab 12/16/18 23:33 Completed CMP Stat Lab 12/16/18 23:34 Completed Peak Expiratory Flow Rate ONCE RT 12/17/18 00:23 Active Respiratory Nebulizer STAT RT 12/16/18 23:45 Active Respiratory Therapy Assessment DAILY RT 12/17/18 00:23 Active Medication Summary Generic Name Dose Route Start Last Admin Trade Name Freq PRN Reason Stop Dose Admin Ceftriaxone Sodium/Dextrose 1 g in 50 mls @ 100 mls/hr 12/17/18 00:13 00:24 Rocephin 1 Gm-D5w 50 Ml Bag IV 12/17/18 00:42 50 mls/hr STAT STA 50 mls/hr Administration Sodium Chloride 500 mls @ 500 mls/hr 12/17/18 00:14 12/17/18 00:25 Sodium Chloride 0.9% 500 Ml IV 12/17/18 01:13 500 mls/hr .Q1H ONE Administration Discontinued Medications Generic Name Dose Route Start Last Admin Trade Name Freq PRN Reason Stop Dose Admin Acetaminophen/Codeine Phosphate 10 ml 12/17/18 00:15 Tylenol W/ Codeine 5 Ml Ud Cup PO 12/17/18 00:16 STAT ONE Albuterol/Ipratropium 3 ml 12/16/18 23:45 12/17/18 00:17 Duoneb 0.5-3 Mg/3 Ml Neb IH 12/16/18 23:46 3 ml STAT ONE Administration Albuterol/Ipratropium Confirm 12/17/18 00:16 Duoneb 0.5-3 Mg/3 Ml Neb Administered 12/17/18 00:17 Dose 3 ml IH .STK-MED ONE Ceftriaxone Sodium/Dextrose Confirm 12/17/18 00:14 Rocephin 1 Gm-D5w 50 Ml Bag Administered 12/17/18 00:15 Dose 1 g in 50 mls @ ud IV .STK-MED ONE Sodium Chloride Confirm 12/17/18 00:14 Sodium Chloride 0.9% 500 Ml Administered 12/17/18 00:15 Dose 500 mls @ ud IV .STK-MED ONE Methylprednisolone Sodium Succinate Confirm 12/17/18 00:13 Solu-Medrol 125 Mg Administered 12/17/18 00:14 Dose 125 mg .ROUTE .STK-MED ONE Methylprednisolone Sodium Succinate 125 mg 12/17/18 00:14 12/17/18 00:25 Solu-Medrol 125 Mg IV 12/17/18 00:15 125 mg STAT ONE Administration Ondansetron HCl Confirm 12/17/18 00:13 Zofran 4 Mg/2 Ml Vial Administered 12/17/18 00:14 Dose 4 mg .ROUTE .STK-MED ONE Ondansetron HCl 4 mg 12/17/18 00:14 12/17/18 00:25 Zofran 4 Mg/2 Ml Vial IV 12/17/18 00:15 4 mg STAT ONE Administration Lab/Rad Data: Laboratory Result Diagrams 12/16/18 23:33 12/16/18 23:34 Laboratory Results 12/16/18 12/16/18 12/16/18 Range/Units 23:45 23:34 23:33 WBC 6.6 (4.0-10.5) K/mm3 RBC 2.68 L (4.1-5.6) M/mm3 Hgb 8.3 L (12.5-18.0) gm/dl Hct 25.2 L (42-50) % MCV 94.0 (78-100) fl MCH 30.9 (26-32) pg MCHC 32.9 (32-36) g/dl RDW 12.5 (11.5-14.0) % Plt Count 131 L (150-450) K/mm3 MPV 12.3 H (6-9.5) fl Gran % 70.2 H (36.0-66.0) % Eos # (Auto) 0.51 H (0-0.5) Absolute Lymphs (auto) 0.85 L (1.0-4.6) Absolute Monos (auto) 0.56 (0.0-1.3) Lymphocytes % 12.9 L (24.0-44.0) % Monocytes % 8.5 (0.0-12.0) % Eosinophils % 7.8 H (0.00-5.0) % Basophils % 0.6 (0.0-0.4) % Absolute Granulocytes 4.62 (1.4-6.9) Basophils # 0.04 (0-0.4) Sodium 140 (137-145) mmol/L Potassium 4.7 (3.5-5.1) mmol/L Chloride 112 H (98-107) mmol/L Carbon Dioxide 19 L (22-30) mmol/L Anion Gap 13.3 (5-15) MEQ/L BUN 43 H (9-20) mg/dL Creatinine 3.26 H (0.66-1.25) mg/dL Estimated GFR 20.1 ML/MIN Glucose 171 H (74-106) mg/dL Calcium 9.5 (8.4-10.2) mg/dL Total Bilirubin 0.40 (0.2-1.3) mg/dL AST 23 (17-59) U/L ALT 18 (0-50) U/L Alkaline Phosphatase 81 (38-126) U/L Serum Total Protein 7.1 (6.3-8.2) g/dL Albumin 4.2 (3.5-5.0) g/dL Influenza Type A Ag NEGATIVE (NEGATIVE) Influenza Type B Ag NEGATIVE (NEGATIVE) RSV (PCR) NEGATIVE (Negative) - Progress Progress: improved, re-examined Air Movement: good Progress Note: 12/17/18 00:20 cxr-no definite acute infiltrate; mild cardiomegaly, no pleural effusions 12/17/18 00:26 i reviewed pts old labs. no sig change in new labs compared to old. Counseled pt/family regarding: lab results, diagnosis, need for follow-up, rad results - Departure Time of Disposition: 00:30 Departure Disposition: Home Clinical Impression: Cough, Bronchitis, Anemia Condition: Stable Critical Care Time: No Referrals: JAVIER ELLER [Primary Care Provider] - Additional Instructions: drink plenty of fluids. continue your cefdinir. follow up with primary doctor for persistent symptoms. use tylenol with codeine elixir if effective for cough and tolerating well. Prescriptions: Codeine Phosphate/APAP [Tylenol W/ Codeine 118 ml] 10 ml PO Q8H PRN PRN #120 ml PRN Reason: Pain Prednisone 10 mg [Deltasone 10 mg] 10 mg PO BID #4 tablet
[2018-12-17] MEDS ORDERED: Zofran 4 MG/2 ML VIAL ONE (00:13)
[2018-12-17] MEDS ORDERED: solu-MEDROL 125 MG ONE (00:13)
[2018-12-17] MEDS ORDERED: ROCEPHIN 1 Gm-D5w 50 ml Bag** 1 G/50 ML IVPB IV STA (00:13)
[2018-12-17] MEDS ORDERED: ROCEPHIN 1 Gm-D5w 50 ml Bag** 1 G/50 ML IVPB IV ONE (00:14)
[2018-12-17] MEDS ORDERED: Sodium Chloride 0.9% 500 ML 500 ML IV ONE ×2 (00:14)
[2018-12-17] MEDS ORDERED: Zofran 4 MG/2 ML VIAL IV ONE (00:14)
[2018-12-17] MEDS ORDERED: solu-MEDROL 125 MG IV ONE (00:14)
[2018-12-17] MEDS ORDERED: TYLENOL W/ CODEINE 5 ML UD CUP PO ONE (00:15)
[2018-12-17] MEDS ORDERED: DUONEB 0.5-3 MG/3 ml Neb IH ONE (00:16)
[2018-12-17 00:24] VITALS: BP 168/70
[2018-12-17 00:24] LABS: INFLUENZA A NEGATIVE (NEGATIVE); INFLUENZA B NEGATIVE (NEGATIVE); RESPIRATORY SYNCTIAL VIRUS NEGATIVE (Negative)
[2018-12-17] MEDS ORDERED: TYLENOL W/ CODEINE 5 ML UD CUP ONE (00:27)
[2018-12-17 01:00] VITALS: PULSE 65; O2SAT 98
--- NOTE | 2018-12-17 08:52 | XRAY ---
Indication: Short of breath. Comparison: July 22, 2018. Portable apical lordotic chest remains clear. Heart and mediastinal structures within normal limits. Bony thorax intact again with mild degenerative changes. No new/acute findings.
== END 2018-12-17 00:59 | disposition home or self-care (01) ==
LOC: ED 23:18
DX: R05 Cough (principal); J40 Bronchitis, not specified as acute or chronic; D64.9 Anemia, unspecified; I12.9 Hypertensive chronic kidney disease with stage 1 through stage 4 chronic kidney disease, or unspecified chronic kidney disease; N18.3 Chronic kidney disease, stage 3 (moderate); E11.9 Type 2 diabetes mellitus without complications; M19.90 Unspecified osteoarthritis, unspecified site; Z86.73 Personal history of transient ischemic attack (TIA), and cerebral infarction without residual deficits; F41.9 Anxiety disorder, unspecified; Z79.899 Other long term (current) drug therapy
CPT/HCPCS: 36415; 71045; 80053; 85025; 87631; 94150; 94640; 96360; 96365; 96374; 96375; 99284; J0696; J2405; J2930; A9270-GY

== ENCOUNTER 2020-12-20 09:48 | Emergency (ER) | payer MEDICARE, OTHER ==
--- NOTE | 2020-12-20 10:01 | XRAY ---
Indication: Weakness. Stroke. Multiple contiguous axial images obtained through the head without contrast. Comparison: None Age-appropriate global atrophy, minimal patchy periventricular degenerative micro-ischemia bilaterally, and remote lacunar infarct left caudate head. No acute intracranial hemorrhage, abnormal extra-axial fluid collection, or mass effect. Fourth ventricle is midline without hydrocephalus. Moreno-white matter differentiation preserved. Bony calvarium intact. Visualized paranasal sinuses and mastoid air cells are clear. Impression: Nonacute senile brain with left caudate remote lacunar infarct.
[2020-12-20 10:08] LABS: Absolute Neutrophil Ct (ANC) 3.86 (1.4-6.9); BASOPHIL % 0.8 % (0.0-0.4); Basophil (Absolute #) 0.05 (0-0.4); Eosinophil % 18.9 % (0.00-5.0); Eosinophil (Absolute #) 1.24 (0-0.5); Hematocrit 29.9 % (42-50); Hemoglobin 9.4 gm/dl (12.5-18.0); Lymphocyte (Absolute #) 0.86 (1.0-4.6); Lymphocytes % 13.1 % (24.0-44.0); Mean Cell Volume 94.3 fl (78-100); Mean Corpuscular Hemoglobin 29.7 pg (26-32); Mean Corpuscular Hgb Concent. 31.4 g/dl (32-36); Mean Platelet Volume 11.2 fl (7.5-11.0); Monocyte (Absolute #) 0.56 (0.0-1.3); Monocytes % 8.5 % (0.0-12.0); Neutrophil % 58.7 % (36.0-66.0); Platelet Count 159 K/mm3 (150-450); Red Blood Count 3.17 M/mm3 (4.1-5.6); Red Cell Distribution Width 14.9 % (11.5-14.0); White Blood Count 6.6 K/mm3 (4.0-10.5)
[2020-12-20 10:17] LABS: INR 1.14 (0.8-3.0); PROTIME 12.9 SECONDS (8.83-12.87)
[2020-12-20 10:20] LABS: ALBUMIN 3.3 g/dL (3.5-5.0); ANION GAP 14.2 MEQ/L (5-15); BILIRUBIN,TOTAL 0.5 mg/dL (0.2-1.3); Calcium 8.7 mg/dL (8.4-10.2); Creatinine 1 3.87 mg/dL (0.66-1.25); EST GLOMERULAR FILTRATION RATE 16.4 ML/MIN; PTT 30.2 SECONDS (24.1-36.1); Potassium 4.3 mmol/L (3.5-5.1); Total Protein 5.7 g/dL (6.3-8.2)
--- NOTE | 2020-12-20 10:25 | ERPHSYRPT ---
- History of Present Illness Source: patient Exam Limitations: other (Vague history) Patient Subjective Stated Complaint: Weakness/dizziness Triage Nursing Assessment: Patient brought back to ED via w/c and directly taken to CT scan for stroke like symptoms. Once back from CT patient assisted to bed with assist of 1. Patient A+O X3. Patient's skin pink, warm and dry. Patient states at 0930 he was eating at a diner when he started getting dizzy and weak. Patient has hx of stroke in 2011. Patient states he is occasionally SOB with nausea. Patient denies Vomiting or diarrhea. Patient denies pain or discomfort. Patient states he receives dialysis M, W, F. Physician History: 70 yo wm w 30mn h/o generalized lethargy/dizziness/nausea/mild dyspnea wo focal weakness/chest pain/headache/trauma. Pt has a h/o CVA in 2011 wo residual deficits. He has ESRD w dialysis M/W/Fr for the last 2 wks and received his full session of dialysis yesterday. Pt taken straight to CT upon arrival which is neg for acute pathology. He does have a remote L lacunar infarct. Neuro exam neg upon arrival wo focal deficit/Pronator drift/Normal CN2-12/Neg for Babinski reflex. Tele-neuro consult obtained after CT exam of brain. Timing/Duration: other (30min) Severity: mild Character of Deficits: new weakness (Generalized), other (Dizziness) Deficits: off balance Baseline/Normal Cognition: alert oriented x 3 Current Cognition: alert oriented x 3 Baseline Gait: walks w/o assistance Associated Symptoms: fatigue, nausea, weakness, vision changes, No confusion, No fever, No chills, No loss of consciousness, No vomiting, No paresthesia, No chest pain, No headache Allergies/Adverse Reactions: acetaminophen [From Vicodin] Allergy (Intermediate, Verified 12/20/20 10:16) Nausea and Vomiting hydrocodone bitartrate [From Vicodin] Allergy (Intermediate, Verified 12/20/20 10:16) Nausea and Vomiting Home Medications: Clopidogrel Bisulfate 75 mg [PLAVIX 75 MG Tablet] 75 mg PO DAILY 07/16/13 [History] Doxazosin Mesylate [Cardura] 8 mg PO BID 07/16/13 [History] Albuterol Sulfate [Ventolin] 5 mg IH Q4HPRN PRN 02/12/18 [History] Aspirin EC 81 mg [Ecotrin 81 mg] 81 mg PO DAILY 02/12/18 [History] Bosentan [Tracleer] 125 mg PO BID 02/12/18 [History] Fluticasone/Salmeterol Disc [Advair 250-50 Diskus 14 Dose] 1 each IH BID 02/12/18 [History] Glimepiride 4 mg [Amaryl 4 mg] 2 mg PO DAILY 02/12/18 [History] Hydralazine HCl 50 mg PO TID 02/12/18 [History] Insulin NPH Human Isophane [Novolin N] 10 unit SQ DAILY 02/12/18 [History] Isosorbide Mononitrate 10 mg PO BID 02/12/18 [History] Lorazepam [Ativan] 2 mg PO BID 02/12/18 [History] Montelukast Sodium 10 mg [Singulair 10 MG] 10 mg PO DAILY 02/12/18 [History] Oxycodone HCl/Acetaminophen [Oxycodone-Acetaminophen 10-325] 0.5 tablet PO BID PRN 02/12/18 [History] Testosterone Undecanoate [Aveed] 0.5 mg IM WEEKLY 02/12/18 [History] Topiramate 100 mg [Topamax 100 MG] 100 mg PO DAILY 02/12/18 [History] Torsemide 10 mg PO DAILY 02/12/18 [History] Nitroglycerin 0.4 mg (Ed) [Nitrostat 0.4 MG (ED)] 0.4 mg SL STAT 02/13/18 [History] Ferrous Sulfate [Iron] 65 mg PO BID 02/14/18 [History] Erenumab-Aooe [Aimovig Autoinjector] 70 mg SQ UD 07/23/18 [History] Ranitidine HCl 300 mg PO DAILY 07/23/18 [History] Ranolazine 500 MG [Ranexa 500 MG] 50 mg PO BID 07/23/18 [History] Hx Tetanus, Diphtheria Vaccination/Date Given: Yes Hx Influenza Vaccination/Date Given: Yes Hx Pneumococcal Vaccination/Date Given: Yes Immunizations Up to Date: Yes Travel Risk - International Travel Have you traveled outside of the country in past 3 weeks: No - Coronavirus Screening Are you exhibiting any of the following symptoms?: No Close contact with a COVID-19 positive Pt in past 14-21 Days: No - Review of Systems Constitutional: Lethargy, Weakness Eyes: No Symptoms Ears, Nose, & Throat: No Symptoms Respiratory: No Symptoms Cardiac: No Symptoms Abdominal/Gastrointestinal: No Symptoms, Nausea Genitourinary Symptoms: No Symptoms Musculoskeletal: No Symptoms Skin: No Symptoms Neurological: Dizziness, Lethargy, No Focal Weakness Psychological: No Symptoms Endocrine: No Symptoms Hematologic/Lymphatic: No Symptoms Immunological/Allergic: No Symptoms - Past Medical History Pertinent Past Medical History: Yes Neurological History: Migraines, Stroke ENT History: No Pertinent History Cardiac History: Hypertension, Other Respiratory History: Other Endocrine Medical History: Diabetes Type II Musculoskeletal History: Fractures, Osteoarthritis GI Medical History: No Pertinent History History: No Pertinent History Psycho-Social History: Anxiety Male Reproductive Disorders: No Pertinent History Other Medical History: stage 3 kidney failure (30-35%), pulmonary hypertension. Fractured L knee when he had a meniscus repair - Past Surgical History Past Surgical History: Yes Neuro Surgical History: No Pertinent History Cardiac: Cardiac Catheterization, Cardiac Stent Respiratory: No Pertinent History Gastrointestinal: No Pertinent History Genitourinary: No Pertinent History Musculoskeletal: Orthopedic Surgery Male Surgical History: No Pertinent History Other Surgical History: tonsils,lt knee surgery, x1 cardiac stent, knee replacement right knee, right shoulder rotator cuff sx - Social History Smoking Status: Never smoker Exposure to second hand smoke: No Drug Use: none Patient Lives Alone: No - Nursing Vital Signs Nursing Vital Signs: Initial Vital Signs Temperature 98.2 F 12/20/20 09:59 Pulse Rate 49 L 12/20/20 09:59 Respiratory Rate 18 12/20/20 09:59 Blood Pressure 93/51 12/20/20 09:59 O2 Sat by Pulse Oximetry 96 12/20/20 09:59 Pain Scale Pain Intensity 0 - Maria Esther Coma Scale Best Eye Response (Maria Esther): (4) open spontaneously Best Verbal Response (Maria Esther): (5) oriented Best Motor Response (Maria Esther): (6) obeys commands Maria Esther Total: 15 - Physical Exam General Appearance: lethargy Eye Exam: bilateral eye: normal inspection, PERRL, EOMI Ears, Nose, Throat Exam: normal ENT inspection, dry mucous membranes Neck Exam: normal inspection, non-tender, supple Respiratory: airway intact, crackles/rales (Faint rales at bases B), No respiratory distress Cardiovascular: murmur (2/6), bradycardia Gastrointestinal: soft, normal bowel sounds, No tenderness Back Exam: normal inspection, normal range of motion, No CVA tenderness, No vertebral tenderness Extremity Exam: normal inspection, normal range of motion Peripheral Pulses: dorsalis-pedis (R): 2+, dorsalis-pedis (L): 2+ Mental Status: oriented x 3, 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 Exam: normal hearing, normal speech, PERRL, No abnormal eye position, No abnormal gag reflex, No abnormal pupil position, No abnormal speech, No facial asymmetry, No facial droop, No facial paresthesias, No facial weakness, No gaze palsy, No hearing deficit (R), No hearing deficit (L), No tongue deviation to R Coordination/Gait: normal cerebellar function, negative Romberg's sign Motor/Sensory: no motor deficit, negative Babinski's sign, No pronator drift (R), No pronator drift (L) DTR: bicep (R): 2+, bicep (L): 2+ Skin Exam: normal color, warm, dry SpO2 Interpretation: normal SpO2: 96 O2 Delivery: Room Air - Course Nursing assessment & vital signs reviewed: Yes EKG Interpreted by Me: RATE (Sinus francisco/R42/Prolonged QT/Flat T waves) - CT Exams Head CT Interpretation: Discussed w/radiologist (Nothing acute) Ordered Tests: Active Orders 24 hr Category Date Time Status EKG-ER Only STAT Care 12/20/20 10:03 Completed NPO (ED) STAT Care 12/20/20 10:02 Completed HEAD WITHOUT CONTRAST [CT] Stat Exams 12/20/20 09:49 Completed CBC W DIFF Stat Lab 12/20/20 10:00 Completed CMP Stat Lab 12/20/20 10:00 Completed POCT GLUCOSE Stat Lab 12/20/20 14:32 Completed PROTIME WITH INR Stat Lab 12/20/20 10:00 Completed PTT Stat Lab 12/20/20 10:00 Completed TROPONIN Q3H Lab 12/20/20 10:15 Completed TROPONIN Q3H Lab 12/20/20 12:34 Completed Medication Summary Discontinued Medications Generic Name Dose Route Start Last Admin Trade Name Freq PRN Reason Stop Dose Admin Sodium Chloride 1,000 mls @ 250 mls/hr 12/20/20 11:03 12/20/20 11:05 Sodium Chloride 0.9% 1000 Ml IV 12/20/20 15:02 250 mls/hr .Q4H STA Administration Sodium Chloride Confirm 12/20/20 11:05 Sodium Chloride 0.9% 250 Ml Administered 12/20/20 11:06 Dose 250 mls @ ud IV .STK-MED ONE Sodium Chloride 1,000 mls @ 999 mls/hr 12/20/20 13:29 12/20/20 13:39 Sodium Chloride 0.9% 1000 Ml IV 12/20/20 14:29 Not Given .Q1H1M STA Lab/Rad Data: Laboratory Result Diagrams 12/20/20 10:00 12/20/20 10:00 Laboratory Results 12/20/20 12/20/20 12/20/20 Range/Units 14:32 12:34 10:15 WBC (4.0-10.5) K/mm3 RBC (4.1-5.6) M/mm3 Hgb (12.5-18.0) gm/dl Hct (42-50) % MCV (78-100) fl MCH (26-32) pg MCHC (32-36) g/dl RDW (11.5-14.0) % Plt Count (150-450) K/mm3 MPV (7.5-11.0) fl Gran % (36.0-66.0) % Eos # (Auto) (0-0.5) Absolute Lymphs (auto) (1.0-4.6) Absolute Monos (auto) (0.0-1.3) Lymphocytes % (24.0-44.0) % Monocytes % (0.0-12.0) % Eosinophils % (0.00-5.0) % Basophils % (0.0-0.4) % Absolute Granulocytes (1.4-6.9) Basophils # (0-0.4) PT (8.83-12.87) SECONDS INR (0.8-3.0) APTT (24.1-36.1) SECONDS Sodium (137-145) mmol/L Potassium (3.5-5.1) mmol/L Chloride (98-107) mmol/L Carbon Dioxide (22-30) mmol/L Anion Gap (5-15) MEQ/L BUN (9-20) mg/dL Creatinine (0.66-1.25) mg/dL Estimated GFR ML/MIN Glucose (74-106) mg/dL POC Glucometer 80 (74 to 106) mg/dL Calcium (8.4-10.2) mg/dL Total Bilirubin (0.2-1.3) mg/dL AST (17-59) U/L ALT (0-50) U/L Alkaline Phosphatase (38-126) U/L Troponin I 0.013 0.015 (0.000-0.034) ng/mL Serum Total Protein (6.3-8.2) g/dL Albumin (3.5-5.0) g/dL 12/20/20 12/20/20 12/20/20 Range/Units 10:00 10:00 10:00 WBC 6.6 (4.0-10.5) K/mm3 RBC 3.17 L (4.1-5.6) M/mm3 Hgb 9.4 L (12.5-18.0) gm/dl Hct 29.9 L (42-50) % MCV 94.3 (78-100) fl MCH 29.7 (26-32) pg MCHC 31.4 L (32-36) g/dl RDW 14.9 H (11.5-14.0) % Plt Count 159 (150-450) K/mm3 MPV 11.2 H (7.5-11.0) fl Gran % 58.7 (36.0-66.0) % Eos # (Auto) 1.24 H (0-0.5) Absolute Lymphs (auto) 0.86 L (1.0-4.6) Absolute Monos (auto) 0.56 (0.0-1.3) Lymphocytes % 13.1 L (24.0-44.0) % Monocytes % 8.5 (0.0-12.0) % Eosinophils % 18.9 H (0.00-5.0) % Basophils % 0.8 (0.0-0.4) % Absolute Granulocytes 3.86 (1.4-6.9) Basophils # 0.05 (0-0.4) PT 12.9 H (8.83-12.87) SECONDS INR 1.14 (0.8-3.0) APTT 30.2 (24.1-36.1) SECONDS Sodium 137 (137-145) mmol/L Potassium 4.3 (3.5-5.1) mmol/L Chloride 101 (98-107) mmol/L Carbon Dioxide 26 (22-30) mmol/L Anion Gap 14.2 (5-15) MEQ/L BUN 21 H (9-20) mg/dL Creatinine 3.87 H (0.66-1.25) mg/dL Estimated GFR 16.4 ML/MIN Glucose 195 H (74-106) mg/dL POC Glucometer (74 to 106) mg/dL Calcium 8.7 (8.4-10.2) mg/dL Total Bilirubin 0.50 (0.2-1.3) mg/dL AST 24 (17-59) U/L ALT 14 (0-50) U/L Alkaline Phosphatase 45 (38-126) U/L Troponin I (0.000-0.034) ng/mL Serum Total Protein 5.7 L (6.3-8.2) g/dL Albumin 3.3 L (3.5-5.0) g/dL - Progress Progress: improved Progress Note: 12/20/20 11:05 Tele-neuro consult-Dr. Holman states that problem is probably related to volume depletion/bradycardia. 12/20/20 14:27 Pt accepted by [facility]hishe[facility] for Dr. [facility] 12/20/20 17:09 Pt continued to have lethargy wo focal weakness during stay w continued bradycardia. Symptoms mildly improved w 250ml NS bolus. Pt stable when care assumed by ambulance service. Counseled pt/family regarding: lab results, rad results - Departure Departure Disposition: Transfer Clinical Impression: Bradycardia, Lethargy Condition: Stable Critical Care Time: No Referrals: JAVIER ELLER [Primary Care Provider] -
[2020-12-20] MEDS ORDERED: Sodium Chloride 0.9% 1000 ML 1,000 ML IV STA ×2 (11:03→13:29)
[2020-12-20] MEDS ORDERED: Sodium Chloride 0.9% 250 ML 250 ML IV ONE (11:05)
[2020-12-20 13:38] VITALS: BP 138/62; PULSE 44; O2SAT 96
== END 2020-12-20 15:04 | disposition short-term general hospital (02) ==
LOC: ED 09:48
DX: R00.1 Bradycardia, unspecified (principal); R53.83 Other fatigue; R06.02 Shortness of breath
CPT/HCPCS: 36415; 70450; 80053; 82947; 84484; 85025; 85610; 85730; 93005; 96360; 96361; 99285

== ENCOUNTER 2021-02-01 15:41 | Emergency (ER) | payer MEDICARE, OTHER ==
[2021-02-01] MEDS ORDERED: Sodium Chloride 0.9% 1000 ML 1,000 ML ONE (16:00)
--- NOTE | 2021-02-01 16:11 | ERPHSYRPT ---
- History of Present Illness Time Seen by Provider: 02/01/21 15:50 Source: patient Exam Limitations: no limitations Patient Subjective Stated Complaint: Pt sent to the ER from [facility] due to having a fast heart rate over 150 Triage Nursing Assessment: Pt brought self to the ER from [facility], A flutter, tachycardic, denies pain, pt had chest pain on Saturday and took nitro, aspirin, and lorazepam before finally feeling better, pt has had recent medication changes in November, pt recently has started peritineal dialysis and states that he feels dehydrated, no edema noted, doesn't appear to be in any distress Physician History: Patient is a 70-year-old male presents to our ED from [facility] for evaluation of of tachycardia. Patient reportedly had a heart rate of greater than 150. Patient is a peritoneal dialysis patient. He was at the [facility] obtaining laboratory work-up. Patient does produce urine. EKG reveals no a flutter with rapid ventricular response. Patient denies chest pain at this time. However he states that he experienced some chest pain 4 days ago. He self treated with nitro aspirin and lorazepam. Patient states his symptoms resolved. He currently feels well. No nausea no vomiting no diaphoresis. No diarrhea. No rash. Patient recently started hemodialysis. Patient states he feels well othe rwise. He voices no other complaints or concerns. Timing/Duration: today Severity: mild Modifying Factors: Improves With: nothing Associated Symptoms: denies symptoms Allergies/Adverse Reactions: acetaminophen [From Vicodin] Allergy (Intermediate, Verified 02/01/21 16:09) Nausea and Vomiting hydrocodone bitartrate [From Vicodin] Allergy (Intermediate, Verified 02/01/21 16:09) Nausea and Vomiting Home Medications: Clopidogrel Bisulfate 75 mg [PLAVIX 75 MG Tablet] 75 mg PO DAILY 07/16/13 [History] Doxazosin Mesylate [Cardura] 8 mg PO BID 07/16/13 [History] Albuterol Sulfate [Ventolin] 5 mg IH Q4HPRN PRN 02/12/18 [History] Aspirin EC 81 mg [Ecotrin 81 mg] 81 mg PO DAILY 02/12/18 [History] Bosentan [Tracleer] 125 mg PO BID 02/12/18 [History] Fluticasone/Salmeterol Disc [Advair 250-50 Diskus 14 Dose] 1 each IH BID 02/12/18 [History] Glimepiride 4 mg [Amaryl 4 mg] 2 mg PO DAILY 02/12/18 [History] Hydralazine HCl 50 mg PO TID 02/12/18 [History] Insulin NPH Human Isophane [Novolin N] 10 unit SQ DAILY 02/12/18 [History] Isosorbide Mononitrate 10 mg PO BID 02/12/18 [History] Lorazepam [Ativan] 2 mg PO BID 02/12/18 [History] Montelukast Sodium 10 mg [Singulair 10 MG] 10 mg PO DAILY 02/12/18 [History] Oxycodone HCl/Acetaminophen [Oxycodone-Acetaminophen 10-325] 0.5 tablet PO BID PRN 02/12/18 [History] Testosterone Undecanoate [Aveed] 0.5 mg IM WEEKLY 02/12/18 [History] Topiramate 100 mg [Topamax 100 MG] 100 mg PO DAILY 02/12/18 [History] Torsemide 10 mg PO DAILY 02/12/18 [History] Nitroglycerin 0.4 mg (Ed) [Nitrostat 0.4 MG (ED)] 0.4 mg SL STAT 02/13/18 [History] Ferrous Sulfate [Iron] 65 mg PO BID 02/14/18 [History] Erenumab-Aooe [Aimovig Autoinjector] 70 mg SQ UD 07/23/18 [History] Ranitidine HCl 300 mg PO DAILY 07/23/18 [History] Ranolazine 500 MG [Ranexa 500 MG] 50 mg PO BID 07/23/18 [History] Amlodipine Besylate 5 mg [Norvasc 5 mg] 5 mg PO DAILY 02/01/21 [History] NIFEdipine [Nifedipine ER] 60 mg PO DAILY 02/01/21 [History] Tizanidine HCl 4 mg [Zanaflex 4 MG] 4 mg PO DAILY 02/01/21 [History] Hx Tetanus, Diphtheria Vaccination/Date Given: Yes Hx Influenza Vaccination/Date Given: Yes Hx Pneumococcal Vaccination/Date Given: Yes Travel Risk - International Travel Have you traveled outside of the country in past 3 weeks: No - Coronavirus Screening Are you exhibiting any of the following symptoms?: No - Vaccine Status Have you recieved a Covid-19 vaccination: Yes Histologist: Moderna - Vaccination Dates Date of 2cond Vaccination (if applicable): 11/21/2020 - Review of Systems Constitutional: No Symptoms, No Fever, No Chills Eyes: No Symptoms Ears, Nose, & Throat: No Symptoms Respiratory: No Symptoms, No Cough, No Dyspnea Cardiac: No Symptoms, No Chest Pain, No Edema, No Syncope Abdominal/Gastrointestinal: No Symptoms, No Abdominal Pain, No Nausea, No Vomiting, No Diarrhea Genitourinary Symptoms: No Symptoms, No Dysuria Musculoskeletal: No Symptoms, No Back Pain, No Neck Pain Skin: No Symptoms, No Rash Neurological: No Symptoms, No Dizziness, No Focal Weakness, No Sensory Changes Psychological: No Symptoms Endocrine: No Symptoms Hematologic/Lymphatic: No Symptoms Immunological/Allergic: No Symptoms All Other Systems: Reviewed and Negative - Past Medical History Pertinent Past Medical History: Yes Neurological History: Migraines, Stroke ENT History: No Pertinent History Cardiac History: Hypertension, Other Respiratory History: Other Endocrine Medical History: Diabetes Type II Musculoskeletal History: Fractures, Osteoarthritis GI Medical History: No Pertinent History History: No Pertinent History Psycho-Social History: Anxiety Male Reproductive Disorders: No Pertinent History Other Medical History: stage 3 kidney failure (30-35%), pulmonary hypertension. Fractured L knee when he had a meniscus repair - Past Surgical History Past Surgical History: Yes Neuro Surgical History: No Pertinent History Cardiac: Cardiac Catheterization, Cardiac Stent Respiratory: No Pertinent History Gastrointestinal: No Pertinent History Genitourinary: No Pertinent History Musculoskeletal: Orthopedic Surgery Male Surgical History: No Pertinent History Other Surgical History: tonsils,lt knee surgery, x1 cardiac stent, knee replacement right knee, right shoulder rotator cuff sx - Social History Smoking Status: Never smoker Exposure to second hand smoke: No Drug Use: none Patient Lives Alone: No - Nursing Vital Signs Nursing Vital Signs: Initial Vital Signs Pulse Rate 125 H 02/01/21 15:45 Respiratory Rate 29 H 02/01/21 15:45 Blood Pressure 123/100 02/01/21 15:45 O2 Sat by Pulse Oximetry 99 02/01/21 15:45 Pain Scale Pain Intensity 0 - Physical Exam General Appearance: no apparent distress, alert, other (Dry appearing oral muco us membranes) Eye Exam: PERRL/EOMI, eyes nml inspection Ears, Nose, Throat Exam: normal ENT inspection, TMs normal, pharynx normal, moist mucous membranes Neck Exam: normal inspection, non-tender, supple, full range of motion Respiratory Exam: normal breath sounds, lungs clear, No respiratory distress Cardiovascular Exam: normal heart sounds, normal peripheral pulses, other (Patient is in a flutter.) Gastrointestinal/Abdomen Exam: soft, normal bowel sounds, No tenderness, No mass Back Exam: normal inspection, normal range of motion, No CVA tenderness, No vertebral tenderness Extremity Exam: normal inspection, normal range of motion, pelvis stable, other (1+ pitting edema bilateral lower extremities. Negative Homans' sign bilaterally.) Neurologic Exam: alert, oriented x 3, cooperative, normal mood/affect, nml cerebellar function, sensation nml, No motor deficits Skin Exam: normal color, warm, dry, No rash Lymphatic Exam: No adenopathy SpO2 Interpretation: normal SpO2: 99 O2 Delivery: Room Air - Course Nursing assessment & vital signs reviewed: Yes EKG Interpreted by Me: RATE (146 atrial flutter), NORMAL AXIS, NORMAL INTERVALS Ordered Tests: Active Orders 24 hr Category Date Time Status Rn Field STAT Care 02/01/21 16:07 Completed EKG-ER Only STAT Care 02/01/21 16:06 Completed IV Insertion STAT Care 02/01/21 16:06 Completed Pulse Oximetry (ED) STAT Care 02/01/21 16:06 Completed CHEST 1 VIEW (PORTABLE) Stat Exams 02/01/21 17:59 Ordered CBC W DIFF Stat Lab 02/01/21 15:52 Completed CMP Stat Lab 02/01/21 15:52 Completed MAGNESIUM Stat Lab 02/01/21 15:52 Completed TROPONIN Q3H Lab 02/01/21 15:52 Completed TROPONIN Q3H Lab 02/01/21 15:52 Received TROPONIN Q3H Lab 02/01/21 19:15 Ordered UA W/RFX UR CULTURE Stat Lab 02/01/21 17:53 Ordered Medication Summary Discontinued Medications Generic Name Dose Route Start Last Admin Trade Name Freq PRN Reason Stop Dose Admin Diltiazem HCl 15 mg 02/01/21 17:08 02/01/21 17:32 Cardizem Iv 50 Mg/10 Ml IV 02/01/21 17:09 15 mg STAT ONE Administration Diltiazem HCl Confirm 02/01/21 17:29 Cardizem Iv 50 Mg/10 Ml Administered 02/01/21 17:30 Dose 50 mg IV .STK-MED ONE Sodium Chloride Confirm 02/01/21 16:00 Sodium Chloride 0.9% 1000 Ml Administered 02/01/21 16:01 Dose 1,000 mls @ ud .ROUTE .STK-MED ONE Sodium Chloride 1,000 mls @ 999 mls/hr 02/01/21 16:06 02/01/21 17:42 Sodium Chloride 0.9% 1000 Ml IV 02/01/21 17:06 Infused .Q1H1M STA Infusion Diltiazem HCl 100 mls @ 5 mls/hr 02/01/21 17:10 02/01/21 17:32 Cardizem Drip 100 Mg/100 Ml D5w IV 03/03/21 17:09 5 mg/hr .Q20H PRN 5 mls/hr HEART RATE/ A-FIB Administration Protocol 5 MG/HR Diltiazem HCl Confirm 02/01/21 17:29 Cardizem Drip 100 Mg/100 Ml D5w Administered 02/01/21 17:30 Dose 100 mls @ ud IV .STK-MED ONE Potassium Chloride 20 meq 02/01/21 17:03 02/01/21 17:32 Klor Con 10 Meq PO 02/01/21 17:04 20 meq STAT ONE Administration Potassium Chloride Confirm 02/01/21 17:29 Klor Con 10 Meq Administered 02/01/21 17:30 Dose 20 meq PO .STK-MED ONE Lab/Rad Data: Laboratory Result Diagrams 02/01/21 15:52 02/01/21 15:52 Laboratory Results 02/01/21 02/01/21 02/01/21 Range/Units 15:52 15:52 15:52 WBC 6.8 (4.0-10.5) K/mm3 RBC 3.35 L (4.1-5.6) M/mm3 Hgb 10.1 L (12.5-18.0) gm/dl Hct 31.1 L (42-50) % MCV 92.8 (78-100) fl MCH 30.1 (26-32) pg MCHC 32.5 (32-36) g/dl RDW 13.7 (11.5-14.0) % Plt Count 153 (150-450) K/mm3 MPV 11.6 H (7.5-11.0) fl Gran % 60.4 (36.0-66.0) % Eos # (Auto) 1.03 H (0-0.5) Absolute Lymphs (auto) 1.09 (1.0-4.6) Absolute Monos (auto) 0.55 (0.0-1.3) Lymphocytes % 15.9 L (24.0-44.0) % Monocytes % 8.0 (0.0-12.0) % Eosinophils % 15.1 H (0.00-5.0) % Basophils % 0.6 (0.0-0.4) % Absolute Granulocytes 4.13 (1.4-6.9) Basophils # 0.04 (0-0.4) Sodium 136 L (137-145) mmol/L Potassium 3.3 L (3.5-5.1) mmol/L Chloride 101 (98-107) mmol/L Carbon Dioxide 26 (22-30) mmol/L Anion Gap 12.9 (5-15) MEQ/L BUN 26 H (9-20) mg/dL Creatinine 5.63 H (0.66-1.25) mg/dL Estimated GFR 10.6 ML/MIN Glucose 208 H (74-106) mg/dL Calcium 8.9 (8.4-10.2) mg/dL Magnesium 2.2 (1.6-2.3) mg/dL Total Bilirubin 0.30 (0.2-1.3) mg/dL AST 26 (17-59) U/L ALT 15 (0-50) U/L Alkaline Phosphatase 54 (38-126) U/L Troponin I 0.280 H* (0.000-0.034) ng/mL Serum Total Protein 6.3 (6.3-8.2) g/dL Albumin 3.7 (3.5-5.0) g/dL - Progress Progress: improved Progress Note: Patient reassessed. He feels well. Heart rate improved. Repeat exam within normal limits. No chest pain or shortness of breath. Mildly elevated troponin likely due to demand ischemia from elevated heart rate and poor renal function. Case discussed with Dr. Sotelo and emergency physician at [facility]. Patient left our ED prior to administration of anticoagulation. Dr. Sotelo states that he will give a dose of Lovenox upon his arrival to [facility]. Patient mildly hypokalemic at 3.3. Potassium replaced. IV fluids infused. Cardizem infusion running as well. Plan of care discussed with patient. He agrees to transfer to [facility] for further evaluation and treatment. 02/01/21 18:35 Counseled pt/family regarding: lab results, diagnosis, rad results - Departure Departure Disposition: Transfer Clinical Impression: Atrial flutter with rapid ventricular response, Dehydration, ESRD (end stage renal disease), Hypokalemia, Hyperglycemia, Elevated troponin Condition: Stable Critical Care Time: No Referrals: JAVIER ELLER [Primary Care Provider] -
[2021-02-01 16:14] LABS: Absolute Neutrophil Ct (ANC) 4.13 (1.4-6.9); BASOPHIL % 0.6 % (0.0-0.4); Basophil (Absolute #) 0.04 (0-0.4); Eosinophil % 15.1 % (0.00-5.0); Eosinophil (Absolute #) 1.03 (0-0.5); Hematocrit 31.1 % (42-50); Hemoglobin 10.1 gm/dl (12.5-18.0); Lymphocyte (Absolute #) 1.09 (1.0-4.6); Lymphocytes % 15.9 % (24.0-44.0); Mean Cell Volume 92.8 fl (78-100); Mean Corpuscular Hemoglobin 30.1 pg (26-32); Mean Corpuscular Hgb Concent. 32.5 g/dl (32-36); Mean Platelet Volume 11.6 fl (7.5-11.0); Monocyte (Absolute #) 0.55 (0.0-1.3); Neutrophil % 60.4 % (36.0-66.0); Platelet Count 153 K/mm3 (150-450); Red Blood Count 3.35 M/mm3 (4.1-5.6); Red Cell Distribution Width 13.7 % (11.5-14.0); White Blood Count 6.8 K/mm3 (4.0-10.5)
[2021-02-01] MEDS: Sodium Chloride 0.9% 1000 ML 1,000 ML IV STA (16:19)
[2021-02-01 16:26] LABS: ALBUMIN 3.7 g/dL (3.5-5.0); ANION GAP 12.9 MEQ/L (5-15); BILIRUBIN,TOTAL 0.3 mg/dL (0.2-1.3); Calcium 8.9 mg/dL (8.4-10.2); Creatinine 1 5.63 mg/dL (0.66-1.25); EST GLOMERULAR FILTRATION RATE 10.6 ML/MIN; MAGNESIUM 2.2 mg/dL (1.6-2.3); Potassium 3.3 mmol/L (3.5-5.1); Total Protein 6.3 g/dL (6.3-8.2)
[2021-02-01] MEDS ORDERED: Klor Con 10 MEQ PO ONE (17:29)
[2021-02-01] MEDS ORDERED: CARDIZEM DRIP 100 MG/100 ML D5W 100 ML IV ONE (17:29)
[2021-02-01] MEDS ORDERED: Cardizem IV 50 MG/10 ML IV ONE (17:29)
[2021-02-01] MEDS: Cardizem IV 50 MG/10 ML IV ONE (17:32)
[2021-02-01] MEDS: Klor Con 10 MEQ PO ONE (17:32)
[2021-02-01] MEDS: CARDIZEM DRIP 100 MG/100 ML D5W 100 ML IV PRN (17:32)
[2021-02-01 17:57] VITALS: BP 135/68; PULSE 77
[2021-02-01 18:37] VITALS: O2SAT 99
[2021-02-01 18:58] LABS: Appearance CLEAR (CLEAR); Bilirubin NEGATIVE (NEGATIVE); Blood NEGATIVE Ery/ul (0-5); Glucose 150 mg/dL (NEGATIVE); Ketones NEGATIVE (NEGATIVE); Leukocyte Esterase NEGATIVE (NEGATIVE); Mucus SLIGHT /HPF (NEGATIVE); Nitrite NEGATIVE (NEGATIVE); Protein,Urine Dip >=500 (Negative); Urobilinogen NEGATIVE mg/dL (0-1); WBC 0-2 /HPF (0-5)
== END 2021-02-01 18:26 | disposition short-term general hospital (02) ==
LOC: ED 15:41
DX: I48.92 Unspecified atrial flutter (principal); E86.0 Dehydration; Z79.899 Other long term (current) drug therapy; I12.0 Hypertensive chronic kidney disease with stage 5 chronic kidney disease or end stage renal disease; N18.6 End stage renal disease; R00.0 Tachycardia, unspecified; Z86.73 Personal history of transient ischemic attack (TIA), and cerebral infarction without residual deficits; E11.65 Type 2 diabetes mellitus with hyperglycemia; R74.8 Abnormal levels of other serum enzymes
CPT/HCPCS: 36415; 80053; 81001; 83735; 84484; 85025; 93005; 93041; 94760; 96360; 96365; 96374; 99285; A9270-GY

== ENCOUNTER 2021-02-08 17:09 | Emergency (ER) | payer MEDICARE, OTHER ==
[2021-02-08 17:26] VITALS: O2SAT 98
[2021-02-08 17:53] LABS: Absolute Neutrophil Ct (ANC) 4.48 (1.4-6.9); BASOPHIL % 0.6 % (0.0-0.4); Basophil (Absolute #) 0.04 (0-0.4); Eosinophil % 16.8 % (0.00-5.0); Eosinophil (Absolute #) 1.19 (0-0.5); Hemoglobin 9.4 gm/dl (12.5-18.0); Lymphocytes % 11.3 % (24.0-44.0); Mean Cell Volume 94.5 fl (78-100); Mean Corpuscular Hemoglobin 30.6 pg (26-32); Mean Corpuscular Hgb Concent. 32.4 g/dl (32-36); Mean Platelet Volume 11.6 fl (7.5-11.0); Monocyte (Absolute #) 0.59 (0.0-1.3); Monocytes % 8.3 % (0.0-12.0); Platelet Count 162 K/mm3 (150-450); Red Blood Count 3.07 M/mm3 (4.1-5.6); Red Cell Distribution Width 14.1 % (11.5-14.0); White Blood Count 7.1 K/mm3 (4.0-10.5)
[2021-02-08 17:54] LABS: INR 1.55 (0.8-3.0); PROTIME 17.6 SECONDS (8.83-12.87)
[2021-02-08 17:57] LABS: PTT 36.7 SECONDS (24.1-36.1)
[2021-02-08 18:03] LABS: ALBUMIN 3.1 g/dL (3.5-5.0); ANION GAP 15.6 MEQ/L (5-15); BILIRUBIN,TOTAL 0.3 mg/dL (0.2-1.3); Calcium 8.9 mg/dL (8.4-10.2); Creatinine 1 5.77 mg/dL (0.66-1.25); EST GLOMERULAR FILTRATION RATE 10.3 ML/MIN; Potassium 4.3 mmol/L (3.5-5.1); Total Protein 5.5 g/dL (6.3-8.2)
--- NOTE | 2021-02-08 18:36 | ERPHSYRPT ---
- History of Present Illness Source: patient Exam Limitations: other (Poor historian) Patient Subjective Stated Complaint: weakness, dizziness, possible dehydration Triage Nursing Assessment: pt to ED c/o dizziness, weakness and possible dehydration. pt began peritoneal dialysis 3.5 weeks ago and has not felt well since then. pt was in this ED and tx to [facility] last week for same sx. pt was DC from [facility] 02/04/21 and has now begun feeling poor again. pt called PCP and spoke with that RN and was referred to ED for possible dehydration. pt denies pain at this time. Physician History: 70 yo wm w elevated HR/Low BP/dizziness wo chest pain/fever/focal weakness. Pt w recent diagnosis of Aflutter and was released from [facility] on 02/04/21. He is on peritoneal dialysis for renal failure. Pt states that his Timing/Duration: other (Several weeks/worse last 1-2 days) Activities at Onset: rest Quality: other (No pain) Location: other (No pain) Severity of Pain-Max: none Severity of Pain-Current: none Modifying Factors: Improves With: nothing Nitro Today/Relief: no nitro taken today Aspirin Treatment Today: no aspirin today Associated Symptoms: No nausea, No vomiting, No abdominal pain, No shortness of breath, No heartburn, No diaphoresis, No cough, No chills, No chest pain, No fever, No headaches, No loss of appetite, No malaise, No rash, No syncope, No seizure, No weakness Prior Chest Pain/Cardiac Workup: recent hospitalization Allergies/Adverse Reactions: acetaminophen [From Vicodin] Allergy (Intermediate, Verified 02/08/21 17:26) Nausea and Vomiting hydrocodone bitartrate [From Vicodin] Allergy (Intermediate, Verified 02/08/21 17:26) Nausea and Vomiting Home Medications: Clopidogrel Bisulfate 75 mg [PLAVIX 75 MG Tablet] 75 mg PO DAILY 07/16/13 [History] Doxazosin Mesylate [Cardura] 8 mg PO BID 07/16/13 [History] Albuterol Sulfate [Ventolin] 5 mg IH Q4HPRN PRN 02/12/18 [History] Aspirin EC 81 mg [Ecotrin 81 mg] 81 mg PO DAILY 02/12/18 [History] Bosentan [Tracleer] 125 mg PO BID 02/12/18 [History] Fluticasone/Salmeterol Disc [Advair 250-50 Diskus 14 Dose] 1 each IH BID 02/12/18 [History] Glimepiride 4 mg [Amaryl 4 mg] 2 mg PO DAILY 02/12/18 [History] Hydralazine HCl 50 mg PO TID 02/12/18 [History] Insulin NPH Human Isophane [Novolin N] 10 unit SQ DAILY 02/12/18 [History] Isosorbide Mononitrate 10 mg PO BID 02/12/18 [History] Lorazepam [Ativan] 2 mg PO BID 02/12/18 [History] Montelukast Sodium 10 mg [Singulair 10 MG] 10 mg PO DAILY 02/12/18 [History] Oxycodone HCl/Acetaminophen [Oxycodone-Acetaminophen 10-325] 0.5 tablet PO BID PRN 02/12/18 [History] Testosterone Undecanoate [Aveed] 0.5 mg IM WEEKLY 02/12/18 [History] Topiramate 100 mg [Topamax 100 MG] 100 mg PO DAILY 02/12/18 [History] Torsemide 10 mg PO DAILY 02/12/18 [History] Nitroglycerin 0.4 mg (Ed) [Nitrostat 0.4 MG (ED)] 0.4 mg SL STAT 02/13/18 [History] Ferrous Sulfate [Iron] 65 mg PO BID 02/14/18 [History] Erenumab-Aooe [Aimovig Autoinjector] 70 mg SQ UD 07/23/18 [History] Ranitidine HCl 300 mg PO DAILY 07/23/18 [History] Ranolazine 500 MG [Ranexa 500 MG] 50 mg PO BID 07/23/18 [History] Amlodipine Besylate 5 mg [Norvasc 5 mg] 5 mg PO DAILY 02/01/21 [History] NIFEdipine [Nifedipine ER] 60 mg PO DAILY 02/01/21 [History] Tizanidine HCl 4 mg [Zanaflex 4 MG] 4 mg PO DAILY 02/01/21 [History] Hx Tetanus, Diphtheria Vaccination/Date Given: Yes Hx Influenza Vaccination/Date Given: Yes Hx Pneumococcal Vaccination/Date Given: Yes Immunizations Up to Date: Yes Travel Risk - International Travel Have you traveled outside of the country in past 3 weeks: No - Coronavirus Screening Are you exhibiting any of the following symptoms?: No Close contact with a COVID-19 positive Pt in past 14-21 Days: No - Vaccine Status Have you recieved a Covid-19 vaccination: Yes Human Services Care Specialist: Moderna - Vaccination Dates Date of 2cond Vaccination (if applicable): November - Review of Systems Constitutional: Fatigue, Lethargy Eyes: No Symptoms Ears, Nose, & Throat: No Symptoms Respiratory: No Symptoms Cardiac: No Symptoms, Palpitations, No Chest Pain Abdominal/Gastrointestinal: No Symptoms Genitourinary Symptoms: No Symptoms Musculoskeletal: No Symptoms Skin: No Symptoms Neurological: No Symptoms, Dizziness Psychological: No Symptoms Endocrine: No Symptoms Hematologic/Lymphatic: No Symptoms Immunological/Allergic: No Symptoms - Past Medical History Pertinent Past Medical History: Yes Neurological History: Migraines, Stroke ENT History: No Pertinent History Cardiac History: Hypertension, Other Respiratory History: Other Endocrine Medical History: Diabetes Type II Musculoskeletal History: Fractures, Osteoarthritis GI Medical History: No Pertinent History History: No Pertinent History Psycho-Social History: Anxiety Male Reproductive Disorders: No Pertinent History Other Medical History: stage 3 kidney failure (30-35%), pulmonary hypertension. Fractured L knee when he had a meniscus repair - Past Surgical History Past Surgical History: Yes Neuro Surgical History: No Pertinent History Cardiac: Cardiac Catheterization, Cardiac Stent Respiratory: No Pertinent History Gastrointestinal: No Pertinent History Genitourinary: No Pertinent History Musculoskeletal: Orthopedic Surgery Male Surgical History: No Pertinent History Other Surgical History: tonsils,lt knee surgery, x1 cardiac stent, knee replacement right knee, right shoulder rotator cuff sx - Social History Smoking Status: Never smoker Exposure to second hand smoke: No Drug Use: none Patient Lives Alone: No Significant Family History: no pertinent family hx - Nursing Vital Signs Nursing Vital Signs: Initial Vital Signs Temperature 98.0 F 02/08/21 17:19 Pulse Rate 98 H 02/08/21 17:19 Respiratory Rate 18 02/08/21 17:19 Blood Pressure 124/66 02/08/21 17:19 O2 Sat by Pulse Oximetry 98 02/08/21 17:19 Pain Scale Pain Intensity 0 - Physical Exam General Appearance: no apparent distress Eye Exam: eyes nml inspection, photophobia Ears, Nose, Throat Exam: normal ENT inspection, TMs normal, pharynx normal, moist mucous membranes Neck Exam: normal inspection, non-tender, supple, full range of motion, No meningismus, No mass, No Brudzinski, No Kernig's Respiratory Exam: normal breath sounds, lungs clear, airway intact, No chest tenderness, No respiratory distress Cardiovascular Exam: tachycardia (A-flutter on monitor) Gastrointestinal/Abdomen Exam: soft, normal bowel sounds, No tenderness Back Exam: normal inspection, normal range of motion, No vertebral tenderness Extremity Exam: normal inspection, normal range of motion Neurologic Exam: alert, oriented x 3, cooperative, roof truss detailer II-XII nml as tested, normal mood/affect, sensation nml Skin Exam: normal color, warm, dry, No rash Lymphatic Exam: No adenopathy SpO2: 98 O2 Delivery: Room Air - Course Nursing assessment & vital signs reviewed: Yes EKG Interpreted by Me: RATE (Rate98/Aflutter/No acute ST changes/Prolonged QTc) - CT Exams Head CT Interpretation: Discussed w/radiologist (No acute changes) Ordered Tests: Active Orders 24 hr Category Date Time Status EKG-ER Only STAT Care 02/08/21 17:43 Completed CHEST 1 VIEW (PORTABLE) Stat Exams 02/08/21 17:44 Taken HEAD WITHOUT CONTRAST [CT] Stat Exams 02/08/21 17:43 Taken CBC W DIFF Stat Lab 02/08/21 17:46 Completed CMP Stat Lab 02/08/21 17:46 Completed Lactic Acid Stat Lab 02/08/21 17:45 Completed PROTIME WITH INR Stat Lab 02/08/21 17:46 Completed PTT Stat Lab 02/08/21 17:46 Completed TROPONIN Q3H Lab 02/08/21 17:46 Completed Lab/Rad Data: Laboratory Result Diagrams 02/08/21 17:46 02/08/21 17:46 Laboratory Results 02/08/21 02/08/21 02/08/21 Range/Units 17:46 17:46 17:46 WBC (4.0-10.5) K/mm3 RBC (4.1-5.6) M/mm3 Hgb (12.5-18.0) gm/dl Hct (42-50) % MCV (78-100) fl MCH (26-32) pg MCHC (32-36) g/dl RDW (11.5-14.0) % Plt Count (150-450) K/mm3 MPV (7.5-11.0) fl Gran % (36.0-66.0) % Eos # (Auto) (0-0.5) Absolute Lymphs (auto) (1.0-4.6) Absolute Monos (auto) (0.0-1.3) Lymphocytes % (24.0-44.0) % Monocytes % (0.0-12.0) % Eosinophils % (0.00-5.0) % Basophils % (0.0-0.4) % Absolute Granulocytes (1.4-6.9) Basophils # (0-0.4) PT 17.6 H (8.83-12.87) SECONDS INR 1.55 (0.8-3.0) APTT 36.7 H (24.1-36.1) SECONDS Sodium 137 (137-145) mmol/L Potassium 4.3 (3.5-5.1) mmol/L Chloride 105 (98-107) mmol/L Carbon Dioxide 21 L (22-30) mmol/L Anion Gap 15.6 H (5-15) MEQ/L BUN 35 H (9-20) mg/dL Creatinine 5.77 H (0.66-1.25) mg/dL Estimated GFR 10.3 ML/MIN Glucose 194 H (74-106) mg/dL Lactic Acid (0.4-2.0) Calcium 8.9 (8.4-10.2) mg/dL Total Bilirubin 0.30 (0.2-1.3) mg/dL AST 24 (17-59) U/L ALT 19 (0-50) U/L Alkaline Phosphatase 50 (38-126) U/L Troponin I 0.024 (0.000-0.034) ng/mL Serum Total Protein 5.5 L (6.3-8.2) g/dL Albumin 3.1 L (3.5-5.0) g/dL 02/08/21 02/08/21 Range/Units 17:46 17:45 WBC 7.1 (4.0-10.5) K/mm3 RBC 3.07 L (4.1-5.6) M/mm3 Hgb 9.4 L (12.5-18.0) gm/dl Hct 29.0 L (42-50) % MCV 94.5 (78-100) fl MCH 30.6 (26-32) pg MCHC 32.4 (32-36) g/dl RDW 14.1 H (11.5-14.0) % Plt Count 162 (150-450) K/mm3 MPV 11.6 H (7.5-11.0) fl Gran % 63.0 (36.0-66.0) % Eos # (Auto) 1.19 H (0-0.5) Absolute Lymphs (auto) 0.80 L (1.0-4.6) Absolute Monos (auto) 0.59 (0.0-1.3) Lymphocytes % 11.3 L (24.0-44.0) % Monocytes % 8.3 (0.0-12.0) % Eosinophils % 16.8 H (0.00-5.0) % Basophils % 0.6 (0.0-0.4) % Absolute Granulocytes 4.48 (1.4-6.9) Basophils # 0.04 (0-0.4) PT (8.83-12.87) SECONDS INR (0.8-3.0) APTT (24.1-36.1) SECONDS Sodium (137-145) mmol/L Potassium (3.5-5.1) mmol/L Chloride (98-107) mmol/L Carbon Dioxide (22-30) mmol/L Anion Gap (5-15) MEQ/L BUN (9-20) mg/dL Creatinine (0.66-1.25) mg/dL Estimated GFR ML/MIN Glucose (74-106) mg/dL Lactic Acid 1.1 (0.4-2.0) Calcium (8.4-10.2) mg/dL Total Bilirubin (0.2-1.3) mg/dL AST (17-59) U/L ALT (0-50) U/L Alkaline Phosphatase (38-126) U/L Troponin I (0.000-0.034) ng/mL Serum Total Protein (6.3-8.2) g/dL Albumin (3.5-5.0) g/dL - Progress Progress Note: 02/08/21 20:26 Pt in rate controlled Aflutter and anticoagulated on Eliquis. Pt's persistent lethargy/malaise most likely due to peritoneal dialysis. Pt refuses transfer to [facility] for nephrology eval and possible switch to hemodialysis. Pt/ request transfer to [place] for eval by his director retirement. [place] has no beds. Spoke to Dr. Arriola who is vehicle calibration engineer for Dr. Mars. States that pt has no h/o Aflutter on his records, but if he is rate controlled and anticoagulated, he can follow up as an outpt. Pt ok to go home and will f/u with Dr. Mars as an outpt. Pt is stable wo and evidence of CVA/Aflutter w RVR. 02/08/21 21:50 Counseled pt/family regarding: lab results, diagnosis, need for follow-up, rad results - Departure Departure Disposition: Home Clinical Impression: Atrial flutter, Renal failure Condition: Stable Critical Care Time: No Referrals: JAVIER ELLER [Primary Care Provider] - Instructions: Kidney Failure (DC), Atrial Flutter (DC) Additional Instructions: Follow up with your compliance auditor or director retirement in AM Continue current meds Return to ER for rapid heart rate/shortness of breath/Focal weakness
[2021-02-08 20:44] VITALS: BP 119/72; PULSE 74
--- NOTE | 2021-02-09 08:49 | XRAY ---
Indication: Weakness, dizziness, lethargy, and loss of balance. Multiple contiguous axial images obtained through the head without contrast. Comparison: December 20, 2020. Again age-appropriate global atrophy and minimal periventricular degenerative micro-ischemia bilaterally. There remains tiny remote lacunar infarct left caudate head and left basal ganglia. No acute intracranial hemorrhage, abnormal extra-axial fluid collection, or mass effect. Fourth ventricle is midline without hydrocephalus. Bony calvarium intact. Visualized paranasal sinuses and mastoid air cells are clear. Impression: Continued nonacute senile brain with remote lacunar infarcts.
--- NOTE | 2021-02-09 09:00 | XRAY ---
Indication: Tachycardia, lethargy, and dizziness. Comparison: February 26, 2020. Portable apical lordotic chest remains clear. Heart is not enlarged with new right large bore dialysis catheter. Bony thorax intact again with mild degenerative changes. Impression: Nonacute chest with chronic features.
== END 2021-02-08 20:50 | disposition home or self-care (01) ==
LOC: ED 17:09
DX: I48.92 Unspecified atrial flutter (principal); R42 Dizziness and giddiness; Z79.899 Other long term (current) drug therapy; Z79.01 Long term (current) use of anticoagulants; E11.9 Type 2 diabetes mellitus without complications; I12.9 Hypertensive chronic kidney disease with stage 1 through stage 4 chronic kidney disease, or unspecified chronic kidney disease; N18.30 Chronic kidney disease, stage 3 unspecified
CPT/HCPCS: 36415; 70450; 71045; 80053; 83605; 84484; 85025; 85610; 85730; 93005; 99284

== ENCOUNTER 2021-03-20 10:55 | Day surgery (SDC) | payer MEDICARE, OTHER ==
--- NOTE | 2021-03-20 08:53 | HP ---
DATE OF SURGERY: 03/20/2021 HISTORY OF PRESENT ILLNESS: The patient is a 70 year-old who has a peritoneal catheter he is using at this time and no longer needs for hemodialysis access and desires removal at this tunnel PermaCath. PAST MEDICAL HISTORY: Renal failure. Chronic obstructive pulmonary disease. Diabetes. Obstructive sleep apnea. Dyslipidemia. Anxiety. Coronary artery disease. Hypertension in the past. Right eye surgery in the past. PAST SURGICAL HISTORY: Left knee surgery. Right knee surgery. Right shoulder. He had a peritoneal catheter placed in the past. He had a tunneled PermaCath in the past. MEDICATIONS: Plavix, Eliquis, Advair, Flonase, bosentan, isosorbide mononitrate, hydralazine, lorazepam, iron, Novolin, Aimovig. He has been on some Botox in the past. ALLERGIES: AMLODIPINE. VICODIN. CATS. FAMILY HISTORY: Negative in regards to this problem. SOCIAL HISTORY: No smoking or alcohol abuse. REVIEW OF SYSTEMS: Fourteen systems reviewed. Negative or noncontributory as above and per preadmission questionnaire. Multiple medical problems mentioned above. PHYSICAL EXAMINATION: GENERAL: A chronically ill gentleman. HEENT: Sclerae nonicteric. NECK: No JVD. CHEST: He has a PermaCath in place in his chest. Equal excursion. No audible wheeze currently. CVS: Regular rate and rhythm. ABDOMEN: Soft, nondistended. He has a peritoneal catheter placed. EXTREMITIES: No cyanosis. NEURO: Alert, moving extremities symmetrically. PSYCH: Appropriate mood and affect. IMPRESSION: Using peritoneal dialysis access now no longer needs hemodialysis and desires removal of this catheter. We discussed options. He prefers to go ahead and remove in the operating room under a little bit of IV sedation. Risks and benefits explained in detail including but not limited to bleeding or infection, risk of thrombosis, deep vein thrombosis, pulmonary embolism, pneumonia but not limited to. Risks of aches and pains, risk of sedation, risk of cardiopulmonary event but not limited to, consent obtained, will proceed with removal of tunneled PermaCath. Undesired PermaCath and history of renal failure as an outpatient.
[~2021-03-20 10:55] MED LIST changes: -Sodium Chloride 0.9% 1000 ML 1,000 ML IV SCH; +XYLOCAINE 1% HCL 20 ML MDV ONE
[2021-03-20] MEDS ORDERED: VERSED 5 MG/5 ML IV ONE (10:56)
[2021-03-20] MEDS ORDERED: SUBLIMAZE 100 MCG/2 ML IV ONE (10:56)
[2021-03-20] MEDS ORDERED: Lactated Ringers 1,000 ML IV ONE (11:58)
[2021-03-20] MEDS ORDERED: Lactated Ringers 1,000 ML IV SCH (12:30)
[2021-03-20 15:04] VITALS: O2SAT 98
[2021-03-20 15:09] VITALS: BP 175/72; PULSE 75
--- NOTE | 2021-03-21 11:22 | OP ---
SURGERY DATE/TIME: 03/20/2021 9979 PREOPERATIVE DIAGNOSIS: History of renal failure, now no longer desired hemodialysis access and desires removal of tunneled PermaCath as he is using a peritoneal catheter now. POSTOPERATIVE DIAGNOSIS: History of renal failure, now no longer desired hemodialysis access and desires removal of tunneled PermaCath as he is using a peritoneal catheter now. PROCEDURE: Removal of tunneled hemodialysis PernaCath dialysis catheter right chest. SURGEON: Dr. Miko Manuel. ANESTHESIA: 15 minutes anesthesia monitored IV conscious sedation and Fentanyl 100 mcg, IV Versed 5 mg. ESTIMATED BLOOD LOSS: Minimal. INDICATIONS: As noted above. Risks and benefits explained in detail and not limited to and consent obtained. DESCRIPTION OF PROCEDURE AND FINDINGS: The patient is taken to the operating room. On continuous pulse oximetry and blood pressure monitoring he is hemodynamically stable. Continued pulse oximetry and blood pressure monitoring. He was actually a little bit hypertensive. He is incrementally sedated with IV Fentanyl and Versed, 50 mcg and 2 mg respectively initially and then another 15 and 2. The patient was actually talking still and given additional 1 of Versed. He is prepped and draped in the usual sterile fashion. Continuous pulse oximetry and blood pressure monitoring. After prepping and draping in usual sterile fashion, 1% lidocaine local infiltrated around the port pocket area. A transverse incision made and dissection carried down directly in the subcu directly on the catheter area. It took some time as the cuff was quite sticky but slowly and carefully dissected free from the surrounding subcutaneous tissue this was distal part of the catheter and these are pulled free and passed off intact. The external portion intact. The catheter was passed off that had been removed in toto. There was no residual cuff material left behind or catheter left behind. The wounds are closed with interrupted 3-0 Prolene. The tunnel track site closed with Prolene temporarily as one the staff was cleaning the patient the suture broke. Good hemostasis noted. Sterile pressure dressing on the patient. The patient tolerated the procedure well. Findings discussed with the family out in the waiting area. I will see him back in the office in the next week or two to remove the sutures.
== END 2021-03-20 14:55 | disposition home or self-care (01) ==
LOC: SDC 10:55
PROVIDERS: ATTEND Surgery
DX: Z45.2 Encounter for adjustment and management of vascular access device (principal); E11.9 Type 2 diabetes mellitus without complications; J44.9 Chronic obstructive pulmonary disease, unspecified; Z79.899 Other long term (current) drug therapy
CPT/HCPCS: 82947; J2250; J3010

== ENCOUNTER 2022-10-12 03:21 | Emergency (ER) | payer MEDICARE, OTHER ==
[2022-10-12] MEDS ORDERED: BABY ASPIRIN 81 MG CHEW PO ONE (03:26)
[2022-10-12 04:02] LABS: Absolute Neutrophil Ct (ANC) 3.06 x10^3/uL (1.4-6.9); Basophil (Absolute #) 0.09 x10^3/uL (0-0.4); Eosinophil % 32.5 % (0.00-5.0); Eosinophil (Absolute #) 2.09 x10^3/uL (0-0.5); Hematocrit 33.3 % (42-50); Hemoglobin 10.9 g/dL (12.5-18.0); Lymphocyte (Absolute #) 0.77 x10^3/uL (1.0-4.6); Mean Cell Volume 93.5 fL (78-100); Mean Corpuscular Hemoglobin 30.6 pg (26-32); Mean Corpuscular Hgb Concent. 32.7 g/dL (32-36); Mean Platelet Volume 12.4 fL (7.5-11.0); Monocytes % 6.2 % (0.0-12.0); Neutrophil % 47.6 % (36.0-66.0); Platelet Count 143 x10^3/uL (150-450); Red Blood Count 3.56 x10^6/uL (4.1-5.6); Red Cell Distribution Width 14.4 % (11.5-14.0); White Blood Count 6.4 x10^3/uL (4.0-10.5)
[2022-10-12 04:27] LABS: ALBUMIN 3.5 g/dL (3.5-5.0); ANION GAP 11.9 MEQ/L (5-15); BILIRUBIN,TOTAL 0.4 mg/dL (0.2-1.3); Calcium 9.2 mg/dL (8.4-10.2); Creatinine 1 8.09 mg/dL (0.66-1.25); Potassium 4.2 mmol/L (3.5-5.1); Total Protein 6.3 g/dL (6.3-8.2)
[2022-10-12 05:32] LABS: Slide Review 1 YES
[2022-10-12] MEDS ORDERED: MORPHINE SULFATE 4 MG INJ ONE (05:45)
[2022-10-12] MEDS ORDERED: NITRO-BID 2% UD PACKETS ONE (05:45)
[2022-10-12] MEDS ORDERED: Zofran 4 MG/2 ML VIAL ONE (05:45)
[2022-10-12] MEDS ORDERED: Zofran 4 MG/2 ML VIAL IV ONE (05:55)
[2022-10-12] MEDS ORDERED: MORPHINE SULFATE 4 MG INJ IV ONE (05:55)
--- NOTE | 2022-10-12 05:55 | ERPHSYRPT ---
- History of Present Illness Time Seen by Provider: 10/12/22 03:24 Historian: patient Exam Limitations: no limitations Patient Subjective Stated Complaint: pt states he has been having intermittent chest pain since yesterday. Triage Nursing Assessment: pt alert and oriented, answers questions approp. pt ambulatory with steady gait ntoed. skin pink warm and dry. respirations nonlabored with lungs cta. heart rate 80 on monitor, sinus rhythm. central and preipheral pulse wnl. Physician History: 72 years old male with history of coronary artery disease status post stenting, hypertension, hyperlipidemia, diabetes mellitus, end-stage renal disease on peritoneal dialysis presented in the ER with chief complaint of intermittent chest pain since yesterday. Patient described dull aching to sharp pain/pressure across chest with no significant aggravating factor but better with taking nitro. He had to take 3 nitro yesterday along with his Telephone and pain subsided. He woke up almost 2 hours ago, was sitting and started to have chest pain again which improved after 2 nitros. Currently has no chest pain. EKG is normal sinus rhythm with no ST elevations. Timing/Duration: yesterday, intermittent, improved Activities at Onset: rest Quality: dullness, pressure, sharpness Location: substernal Chest Pain Radiation: no radiation Severity of Pain-Max: moderate Severity of Pain-Current: none Modifying Factors: Improves With: nitroglycerin Associated Symptoms: denies symptoms Prior Chest Pain/Cardiac Workup: heart attack Nitro Today/Relief: 0.4 mg x 2, provided at home Aspirin Treatment Today: no aspirin today Allergies/Adverse Reactions: amlodipine Allergy (Severe, Verified 10/12/22 03:37) Swelling hydrocodone bitartrate [From Vicodin] Allergy (Intermediate, Verified 10/12/22 03:37) Nausea and Vomiting Home Medications: Doxazosin Mesylate [Cardura] 8 mg PO DAILY 07/16/13 [History] Bosentan [Tracleer] 125 mg PO BID 02/12/18 [History] Fluticasone/Salmeterol Disc [Advair/Wixella 250-50 Diskus 14 Dose] 1 each IH BID 02/12/18 [History] Hydralazine HCl 100 mg PO TID 02/12/18 [History] Insulin NPH Human Isophane [Novolin N] 10 unit SQ DAILY 02/12/18 [History] Isosorbide Mononitrate 30 mg PO BID 02/12/18 [History] Lorazepam [Ativan] 2 mg PO BID 02/12/18 [History] Montelukast Sodium 10 mg [Singulair 10 MG] 10 mg PO DAILY 02/12/18 [History] Topiramate 100 mg [Topamax 100 MG] 100 mg PO DAILY 02/12/18 [History] Nitroglycerin 0.4 mg (Ed) [Nitrostat 0.4 MG (ED)] 0.4 mg SL STAT 02/13/18 [History] Ferrous Sulfate [Iron] 65 mg PO BID 02/14/18 [History] Erenumab-Aooe [Aimovig Autoinjector] 140 mg SQ UD 07/23/18 [History] Albuterol Sulfate [Proair Hfa] 8.5 gm IH DAILY PRN 03/17/21 [History] Fluticasone Propionate [Flonase NASAL] 16 gm NS DAILY 03/17/21 [History] Mupirocin [Bactroban OINTMENT] 22 gm TP DAILY PRN 03/17/21 [History] Paroxetine HCl 20 mg [Paxil 20 MG] 20 mg PO DAILY 03/17/21 [History] Ranolazine 500 MG [Ranexa 500 MG] 500 mg PO BID 03/17/21 [History] Simvastatin [Zocor] 40 mg PO HS 03/17/21 [History] Sodium Bicarbonate 650 mg PO BID 03/17/21 [History] Testosterone Cypionate 200 mg IM WEEKLY 03/17/21 [History] Tizanidine HCl [Zanaflex] 6 mg PO HS 03/17/21 [History] Tramadol HCl 50 mg [Ultram 50 mg] 50 mg PO BID 03/17/21 [History] Ubrogepant [Ubrelvy] 100 mg PO DAILY 03/17/21 [History] Hx Tetanus, Diphtheria Vaccination/Date Given: No Hx Influenza Vaccination/Date Given: Yes Hx Pneumococcal Vaccination/Date Given: Yes Immunizations Up to Date: Yes Travel Risk - International Travel Have you traveled outside of the country in past 3 weeks: No - Coronavirus Screening Are you exhibiting any of the following symptoms?: No Close contact with a COVID-19 positive Pt in past 14-21 Days: No - Vaccine Status Have you recieved a Covid-19 vaccination: Yes Corporate Specialist: Moderna - Vaccination Dates Date of 2cond Vaccination (if applicable): 2020 - Review of Systems Constitutional: No Symptoms Eyes: No Symptoms Ears, Nose, & Throat: No Symptoms Respiratory: No Symptoms Cardiac: Chest Pain Abdominal/Gastrointestinal: No Symptoms Genitourinary Symptoms: No Symptoms Musculoskeletal: Arthralgias Skin: No Symptoms Neurological: No Symptoms Psychological: No Symptoms Endocrine: No Symptoms Hematologic/Lymphatic: No Symptoms Immunological/Allergic: No Symptoms - Past Medical History Pertinent Past Medical History: Yes Neurological History: Migraines, Stroke ENT History: Cataracts Cardiac History: Arrhythmia, Coronary Artery Disease, Hypertension, Other Respiratory History: Sleep Apnea, Other Endocrine Medical History: Diabetes Type II Musculoskeletal History: Fractures, Osteoarthritis GI Medical History: No Pertinent History History: Renal Disease Psycho-Social History: Anxiety Male Reproductive Disorders: No Pertinent History Other Medical History: stage 3 kidney failure (30-35%), pulmonary hypertension. Fractured L knee when he had a meniscus repair - Past Surgical History Past Surgical History: Yes Neuro Surgical History: No Pertinent History Cardiac: Cardiac Catheterization, Cardiac Stent Respiratory: No Pertinent History Gastrointestinal: No Pertinent History Genitourinary: No Pertinent History Musculoskeletal: Orthopedic Surgery Male Surgical History: No Pertinent History Other Surgical History: tonsils,lt knee surgery, x1 cardiac stent, knee replacement right knee, right shoulder rotator cuff sx, cataract removed R eye - Social History Smoking Status: Former smoker Exposure to second hand smoke: No Drug Use: none Patient Lives Alone: No Significant Family History: no pertinent family hx - Nursing Vital Signs Nursing Vital Signs: Initial Vital Signs Temperature 98.2 F 10/12/22 03:22 Pulse Rate 80 10/12/22 03:22 Respiratory Rate 18 10/12/22 03:22 Blood Pressure 195/101 10/12/22 03:22 O2 Sat by Pulse Oximetry 96 10/12/22 03:22 Pain Scale Pain Intensity 1 - Physical Exam General Appearance: no apparent distress, alert Eye Exam: PERRL/EOMI Ears, Nose, Throat Exam: normal ENT inspection, TMs normal, pharynx normal Neck Exam: normal inspection, non-tender, supple, full range of motion Respiratory Exam: normal breath sounds, lungs clear Cardiovascular Exam: regular rate/rhythm, normal heart sounds Gastrointestinal/Abdomen Exam: soft Back Exam: normal inspection, normal range of motion Extremity Exam: normal inspection, normal range of motion Neurologic Exam: alert, oriented x 3, cooperative Skin Exam: normal color SpO2 Interpretation: normal SpO2: 96 O2 Delivery: Room Air - Course EKG Interpreted by Me: RATE (77), Sinus Rhythm, NORMAL AXIS, prolonged QT interval, Non-specific ST Changes Ordered Tests: Active Orders 24 hr Category Date Time Status Systems Librarian STAT Care 10/12/22 03:27 Active EKG-ER Only STAT Care 10/12/22 03:26 Active IV Insertion STAT Care 10/12/22 03:26 Active CHEST 1 VIEW (PORTABLE) Stat Exams 10/12/22 03:48 Taken CBC W DIFF Stat Lab 10/12/22 03:30 Completed CK-Creatinine Phosphokinase Stat Lab 10/12/22 03:30 Completed CMP Stat Lab 10/12/22 03:30 Completed NT PRO BNP Stat Lab 10/12/22 03:30 Completed TROPONIN Q4H Lab 10/12/22 03:30 Completed TROPONIN Q4H Lab 10/12/22 07:30 Ordered TROPONIN Q4H Lab 10/12/22 11:30 Ordered Medication Summary Discontinued Medications Generic Name Dose Route Start Last Admin Trade Name Freq PRN Reason Stop Dose Admin Aspirin 324 mg 10/12/22 03:26 10/12/22 03:43 Aspirin 81 Mg Tab.Chew PO 10/12/22 03:27 324 mg STAT ONE Administration Morphine Sulfate Confirm 10/12/22 05:45 Morphine Sulfate 4 Mg/Ml Injection Administered 10/12/22 05:46 Dose 4 mg .ROUTE .STK-MED ONE Nitroglycerin Confirm 10/12/22 05:45 Nitroglycerin 1 Gm Packet Administered 10/12/22 05:46 Dose 1 gm .ROUTE .STK-MED ONE Ondansetron HCl Confirm 10/12/22 05:45 Ondansetron Hcl 4 Mg/2 Ml Vial Administered 10/12/22 05:46 Dose 4 mg .ROUTE .STK-MED ONE Lab/Rad Data: Laboratory Result Diagrams 10/12/22 03:30 10/12/22 03:30 Laboratory Results 10/12/22 10/12/22 10/12/22 Range/Units 03:30 03:30 03:30 WBC 6.4 (4.0-10.5) x10^3/uL RBC 3.56 L (4.1-5.6) x10^6/uL Hgb 10.9 L (12.5-18.0) g/dL Hct 33.3 L (42-50) % MCV 93.5 (78-100) fL MCH 30.6 (26-32) pg MCHC 32.7 (32-36) g/dL RDW 14.4 H (11.5-14.0) % Plt Count 143 L (150-450) x10^3/uL MPV 12.4 H (7.5-11.0) fL Gran % 47.6 (36.0-66.0) % Immature Gran % (Auto) 0.3 (0.00-0.4) % Nucleat RBC Rel Count 0.0 (0.00-0.1) % Eos # (Auto) 2.09 H (0-0.5) x10^3/uL Immature Gran # (Auto) 0.02 (0.00-0.03) x10^3u/L Absolute Lymphs (auto) 0.77 L (1.0-4.6) x10^3/uL Absolute Monos (auto) 0.40 (0.0-1.3) x10^3/uL Absolute Nucleated RBC 0.00 (0.00-0.01) x10^3u/L Lymphocytes % 12.0 L (24.0-44.0) % Monocytes % 6.2 (0.0-12.0) % Eosinophils % 32.5 H (0.00-5.0) % Basophils % 1.4 (0.0-0.4) % Absolute Granulocytes 3.06 (1.4-6.9) x10^3/uL Basophils # 0.09 (0-0.4) x10^3/uL Sodium 135 L (137-145) mmol/L Potassium 4.2 (3.5-5.1) mmol/L Chloride 108 H (98-107) mmol/L Carbon Dioxide 20 L (22-30) mmol/L Anion Gap 11.9 (5-15) MEQ/L BUN 70 H (9-20) mg/dL Creatinine 8.09 H (0.66-1.25) mg/dL Estimated GFR 7.0 ML/MIN Glucose 142 H (74-106) mg/dL Calcium 9.2 (8.4-10.2) mg/dL Total Bilirubin 0.40 (0.2-1.3) mg/dL AST 30 (17-59) U/L ALT 16 (0-50) U/L Alkaline Phosphatase 67 (38-126) U/L Creatine Kinase 73 (55-170) U/L Troponin I 0.212 H* (0.000-0.034) ng/mL NT-Pro-B Natriuret Pep 3430 H (0-900) pg/mL Serum Total Protein 6.3 (6.3-8.2) g/dL Albumin 3.5 (3.5-5.0) g/dL Slides for Path Review YES - Progress Progress: re-examined Air Movement: good Progress Note: 10/12/22 05:53 72-year-old is evaluated for intermittent chest pain since yesterday without any significant aggravating factors but improves after taking multiple nitros. It happened yesterday around noon time and then again prior to arrival. Pain is across chest with pressure tightness. No difficulty breathing. EKG showed sinus rhythm with no ST elevations. Chest x-ray no acute cardiopulmonary findings reviewed by me, official report is pending. Has normal white count, chemistries consistent with ESRD with a creatinine of 8.0 and BUN in 70s. Patient has a initial troponin of 0.2. Initially patient was not complaining of any pain but later on started to have chest pain again. He is given Nitropaste and morphine. Patient has multiple risk factors for CAD and pain seems to be of unstable angina type, discussed with Dr. Castellon at [facility] and patient would be transferred for further evaluation with cardiology consultation. Plan discussed with patient and family who understand and agree with it. Blood Culture(s) Obtained: No Antibiotics given: No Discussed with : Other (Dr. Castellon [facility] ER) Counseled pt/family regarding: lab results, diagnosis, rad results - Departure Departure Disposition: Transfer Clinical Impression: ESRD (end stage renal disease), NSTEMI (non-ST elevated myocardial infarction) Condition: Stable Critical Care Time: No Referrals: JAVIER ELLER [Primary Care Provider] - Follow up/PCP as directed
[2022-10-12] MEDS ORDERED: NITRO-BID 2% UD PACKETS TOP ONE (05:58)
[2022-10-12 06:00] VITALS: O2SAT 94
[2022-10-12 06:08] VITALS: BP 208/108; PULSE 86
--- NOTE | 2022-10-12 09:22 | XRAY ---
Indication: Chest pain. Comparison: February 08, 2021 Portable apical lordotic chest remains inflated and clear. Heart not enlarged. Bony thorax intact again with mild degenerative changes. No new/acute findings.
== END 2022-10-12 06:15 | disposition short-term general hospital (02) ==
LOC: ED 03:21
DX: I21.4 Non-ST elevation (NSTEMI) myocardial infarction (principal); N18.6 End stage renal disease; I25.119 Atherosclerotic heart disease of native coronary artery with unspecified angina pectoris; I12.0 Hypertensive chronic kidney disease with stage 5 chronic kidney disease or end stage renal disease; E11.22 Type 2 diabetes mellitus with diabetic chronic kidney disease; Z99.2 Dependence on renal dialysis; R07.9 Chest pain, unspecified; E78.5 Hyperlipidemia, unspecified; Z79.4 Long term (current) use of insulin; Z79.891 Long term (current) use of opiate analgesic; Z79.899 Other long term (current) drug therapy
CPT/HCPCS: 36000; 36415; 71045; 80053; 82550; 83880; 84484; 85025; 93005; 93041; 96374; 96375; 99285; J2270; J2405; A9270-GY

== ENCOUNTER 2022-11-29 09:03 | Emergency (ER) | payer MEDICARE, OTHER ==
--- NOTE | 2022-11-29 09:10 | ERPHSYRPT ---
- History of Present Illness Time Seen by Provider: 11/29/22 09:10 Source: patient Exam Limitations: no limitations Physician History: This is a 72-year-old white male patient of Dr. Eller who has a significant coronary artery disease and chronic angina. He has had cardiac stents performed and within the last 2 months he had a two-vessel coronary artery bypass graft placed by Dr. Leal in [facility]. He has renal failure and sees Dr. Chong for this. He does peritoneal dialysis nightly. 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 Patient prefers to have a more local talent acquisition sourcer. Patient presents with increasing shortness of breath for 3 to 5 days. He also has associated cough. Patient has a history of hypertension, hyperlipidemia, insulin-dependent diabetes, sleep apnea and CVAs. Timing/Duration: day(s) (3 to 5 days) Possible Cause: occasional episodes Modifying Factors: Improves With: coughing, exertion, oxygen Associated Symptoms: cough, weakness, No chest pain/discomfort Allergies/Adverse Reactions: amlodipine Allergy (Severe, Verified 11/29/22 09:14) Swelling hydrocodone bitartrate [From Vicodin] Allergy (Intermediate, Verified 11/29/22 09:14) Nausea and Vomiting Home Medications: Doxazosin Mesylate [Cardura] 8 mg PO DAILY 07/16/13 [History] Bosentan [Tracleer] 125 mg PO BID 02/12/18 [History] Fluticasone/Salmeterol Disc [Advair/Wixella 250-50 Diskus 14 Dose] 1 each IH BID 02/12/18 [History] Hydralazine HCl 100 mg PO TID 02/12/18 [History] Insulin NPH Human Isophane [Novolin N] 10 unit SQ DAILY 02/12/18 [History] Isosorbide Mononitrate 30 mg PO BID 02/12/18 [History] Lorazepam [Ativan] 2 mg PO BID 02/12/18 [History] Montelukast Sodium 10 mg [Singulair 10 MG] 10 mg PO DAILY 02/12/18 [History] Topiramate 100 mg [Topamax 100 MG] 100 mg PO DAILY 02/12/18 [History] Nitroglycerin 0.4 mg (Ed) [Nitrostat 0.4 MG (ED)] 0.4 mg SL STAT 02/13/18 [History] Ferrous Sulfate [Iron] 65 mg PO BID 02/14/18 [History] Erenumab-Aooe [Aimovig Autoinjector] 140 mg SQ UD 07/23/18 [History] Albuterol Sulfate [Proair Hfa] 8.5 gm IH DAILY PRN 03/17/21 [History] Fluticasone Propionate [Flonase NASAL] 16 gm NS DAILY 03/17/21 [History] Mupirocin [Bactroban OINTMENT] 22 gm TP DAILY PRN 03/17/21 [History] Paroxetine HCl 20 mg [Paxil 20 MG] 20 mg PO DAILY 03/17/21 [History] Ranolazine 500 MG [Ranexa 500 MG] 500 mg PO BID 03/17/21 [History] Simvastatin [Zocor] 40 mg PO HS 03/17/21 [History] Sodium Bicarbonate 650 mg PO BID 03/17/21 [History] Testosterone Cypionate 200 mg IM WEEKLY 03/17/21 [History] Tizanidine HCl [Zanaflex] 6 mg PO HS 03/17/21 [History] Tramadol HCl 50 mg [Ultram 50 mg] 50 mg PO BID 03/17/21 [History] Ubrogepant [Ubrelvy] 100 mg PO DAILY 03/17/21 [History] Aspirin 81 gm Chew [Baby Aspirin 81 mg Chew] 81 mg PO DAILY 11/29/22 [History] Hx Tetanus, Diphtheria Vaccination/Date Given: No Hx Influenza Vaccination/Date Given: Yes Hx Pneumococcal Vaccination/Date Given: Yes Travel Risk - International Travel Have you traveled outside of the country in past 3 weeks: No - Coronavirus Screening Are you exhibiting any of the following symptoms?: Yes Symptoms: Cough: New Onset, Shortness of Breath - Vaccine Status Have you recieved a Covid-19 vaccination: Yes Trailer Tank Truck Driver: Moderna - Vaccination Dates Date of 2cond Vaccination (if applicable): 2020 - Review of Systems Constitutional: Weakness Eyes: No Symptoms Ears, Nose, & Throat: No Symptoms Respiratory: Cough, Dyspnea Cardiac: No Symptoms Abdominal/Gastrointestinal: No Symptoms Genitourinary Symptoms: No Symptoms Musculoskeletal: No Symptoms Skin: No Symptoms Neurological: No Symptoms Psychological: No Symptoms Endocrine: No Symptoms Hematologic/Lymphatic: No Symptoms Immunological/Allergic: No Symptoms All Other Systems: Reviewed and Negative - Past Medical History Pertinent Past Medical History: Yes Neurological History: Migraines, Stroke ENT History: Cataracts Cardiac History: Arrhythmia, Coronary Artery Disease, Hypertension, Other Respiratory History: Sleep Apnea, Other Endocrine Medical History: Diabetes Type II Musculoskeletal History: Fractures, Osteoarthritis GI Medical History: No Pertinent History History: Renal Disease Psycho-Social History: Anxiety Male Reproductive Disorders: No Pertinent History Other Medical History: stage 3 kidney failure (30-35%), pulmonary hypertension. Fractured L knee when he had a meniscus repair - Past Surgical History Past Surgical History: Yes Neuro Surgical History: No Pertinent History Cardiac: Cardiac Catheterization, Cardiac Stent Respiratory: No Pertinent History Gastrointestinal: No Pertinent History Genitourinary: No Pertinent History Musculoskeletal: Orthopedic Surgery Male Surgical History: No Pertinent History Other Surgical History: tonsils,lt knee surgery, x1 cardiac stent, knee repl acement right knee, right shoulder rotator cuff sx, cataract removed R eye - Social History Smoking Status: Former smoker Exposure to second hand smoke: No Drug Use: none Patient Lives Alone: No Significant Family History: no pertinent family hx - Nursing Vital Signs Nursing Vital Signs: Initial Vital Signs Temperature 97.2 F 11/29/22 09:06 Pulse Rate 81 11/29/22 09:06 Respiratory Rate 14 11/29/22 09:06 Blood Pressure 211/77 11/29/22 09:06 O2 Sat by Pulse Oximetry 98 11/29/22 09:06 Pain Scale Pain Intensity 0 - Physical Exam General Appearance: no apparent distress, alert, anxiety Eye Exam: PERRL/EOMI, eyes nml inspection Ears, Nose, Throat Exam: hearing grossly normal, normal ENT inspection, normal pharynx Neck Exam: normal inspection, non-tender, supple, full range of motion Respiratory Exam: normal breath sounds, lungs clear, airway intact, No chest tenderness, No respiratory distress Cardiovascular/Chest Exam: normal heart sounds, regular rate/rhythm Abdominal/Gastrointestinal Exam: soft, normal bowel sounds, No tenderness Rectal Exam: not done Extremity Exam: non-tender, normal range of motion, normal inspection Neurologic Exam: alert, oriented x 3, cooperative, respiratory care technician II-XII nml as tested, normal mood/affect, nml cerebellar function, nml station & gait, sensation nml Skin Exam: normal color, warm, dry Lymphatic Exam: No adenopathy SpO2 Interpretation: normal SpO2: 98 O2 Delivery: Room Air - Course Nursing assessment & vital signs reviewed: Yes EKG Interpreted by Me: RATE (66), Sinus Rhythm, NORMAL AXIS, NORMAL INTERVALS, NORMAL QRS, NORMAL ST-T, Non-specific ST Changes, Other (No acute ischemic changes on today's twelve-lead EKG.) Ordered Tests: Active Orders 24 hr Category Date Time Status Ed Physicians STAT Care 11/29/22 09:11 Active EKG-ER Only STAT Care 11/29/22 09:11 Active IV Insertion STAT Care 11/29/22 09:11 Active Pulse Oximetry (ED) STAT Care 11/29/22 09:11 Active CHEST 1 VIEW (PORTABLE) Stat Exams 11/29/22 09:11 Completed CBC W DIFF Stat Lab 11/29/22 09:31 Completed CMP Stat Lab 11/29/22 09:31 Completed NT PRO BNPII Stat Lab 11/29/22 09:31 Completed POCT GLUCOSE Stat Lab 11/29/22 10:54 Completed TROPONIN Q4H Lab 11/29/22 09:31 Completed TROPONIN Q4H Lab 11/29/22 13:15 Ordered TROPONIN Q4H Lab 11/29/22 17:15 Ordered Lab/Rad Data: Laboratory Result Diagrams 11/29/22 09:31 11/29/22 09:31 Laboratory Results 11/29/22 11/29/22 11/29/22 Range/Units 10:54 09:31 09:31 WBC (4.0-10.5) x10^3/uL RBC (4.1-5.6) x10^6/uL Hgb (12.5-18.0) g/dL Hct (42-50) % MCV (78-100) fL MCH (26-32) pg MCHC (32-36) g/dL RDW (11.5-14.0) % Plt Count (150-450) x10^3/uL MPV (7.5-11.0) fL Gran % (36.0-66.0) % Immature Gran % (Auto) (0.00-0.4) % Nucleat RBC Rel Count (0.00-0.1) % Eos # (Auto) (0-0.5) x10^3/uL Immature Gran # (Auto) (0.00-0.03) x10^3u/L Absolute Lymphs (auto) (1.0-4.6) x10^3/uL Absolute Monos (auto) (0.0-1.3) x10^3/uL Absolute Nucleated RBC (0.00-0.01) x10^3u/L Lymphocytes % (24.0-44.0) % Monocytes % (0.0-12.0) % Eosinophils % (0.00-5.0) % Basophils % (0.0-0.4) % Absolute Granulocytes (1.4-6.9) x10^3/uL Basophils # (0-0.4) x10^3/uL Sodium (137-145) mmol/L Potassium (3.5-5.1) mmol/L Chloride (98-107) mmol/L Carbon Dioxide (22-30) mmol/L Anion Gap (5-15) MEQ/L BUN (9-20) mg/dL Creatinine (0.66-1.25) mg/dL Estimated GFR ML/MIN Glucose (74-106) mg/dL POC Glucometer 179 H (74 to 106) mg/dL Calcium (8.4-10.2) mg/dL Total Bilirubin (0.2-1.3) mg/dL AST (17-59) U/L ALT (0-50) U/L Alkaline Phosphatase (38-126) U/L Troponin I 0.056 H* (0.000-0.034) ng/mL NT-Pro-B Natriuret Pep (<300) pg/mL Serum Total Protein (6.3-8.2) g/dL Albumin (3.5-5.0) g/dL Influenza Type A Ag NEGATIVE (NEGATIVE) Influenza Type B Ag NEGATIVE (NEGATIVE) RSV (PCR) NEGATIVE (Negative) SARS-CoV-2 (PCR) NEGATIVE (NEGATIVE) 11/29/22 11/29/22 Range/Units 09:31 09:31 WBC 9.4 (4.0-10.5) x10^3/uL RBC 2.33 L (4.1-5.6) x10^6/uL Hgb 7.2 L (12.5-18.0) g/dL Hct 23.0 L (42-50) % MCV 98.7 (78-100) fL MCH 30.9 (26-32) pg MCHC 31.3 L (32-36) g/dL RDW 14.1 H (11.5-14.0) % Plt Count 172 (150-450) x10^3/uL MPV 11.6 H (7.5-11.0) fL Gran % 64.0 (36.0-66.0) % Immature Gran % (Auto) 0.4 (0.00-0.4) % Nucleat RBC Rel Count 0.0 (0.00-0.1) % Eos # (Auto) 1.55 H (0-0.5) x10^3/uL Immature Gran # (Auto) 0.04 H (0.00-0.03) x10^3u/L Absolute Lymphs (auto) 0.88 L (1.0-4.6) x10^3/uL Absolute Monos (auto) 0.85 (0.0-1.3) x10^3/uL Absolute Nucleated RBC 0.00 (0.00-0.01) x10^3u/L Lymphocytes % 9.4 L (24.0-44.0) % Monocytes % 9.1 (0.0-12.0) % Eosinophils % 16.6 H (0.00-5.0) % Basophils % 0.5 (0.0-0.4) % Absolute Granulocytes 5.99 (1.4-6.9) x10^3/uL Basophils # 0.05 (0-0.4) x10^3/uL Sodium 138 (137-145) mmol/L Potassium 4.8 (3.5-5.1) mmol/L Chloride 104 (98-107) mmol/L Carbon Dioxide 18 L (22-30) mmol/L Anion Gap 20.7 H (5-15) MEQ/L BUN 101 H (9-20) mg/dL Creatinine 10.43 H (0.66-1.25) mg/dL Estimated GFR 5.2 ML/MIN Glucose 221 H (74-106) mg/dL POC Glucometer (74 to 106) mg/dL Calcium 8.8 (8.4-10.2) mg/dL Total Bilirubin 0.40 (0.2-1.3) mg/dL AST 22 (17-59) U/L ALT 20 (0-50) U/L Alkaline Phosphatase 139 H (38-126) U/L Troponin I (0.000-0.034) ng/mL NT-Pro-B Natriuret Pep 57403 (<300) pg/mL Serum Total Protein 6.5 (6.3-8.2) g/dL Albumin 3.5 (3.5-5.0) g/dL Influenza Type A Ag (NEGATIVE) Influenza Type B Ag (NEGATIVE) RSV (PCR) (Negative) SARS-CoV-2 (PCR) (NEGATIVE) - Progress Progress: improved, re-examined Air Movement: good Progress Note: 11/29/22 09:43 Chest x-ray continues to show nonacute findings with chronic features. 11/29/22 11:08 This patient's medical condition is 1 of high complexity. The level of complexity in the work-up performed was based on the review of the patient's past medical history, medication list, drug allergy list, history of present illness, and findings on physical examination. The work-up included placement of an intravenous line, twelve-lead EKG, CBC, CMP, BNP, troponin, and chest x- ray. The results were reviewed by me and discussed with the patient as well as discussion with Dr. Sotelo who is the emergency room physician on at [facility] in [facility]. The patient has multiple significant medical issues which will require higher level of care and therefore transfer to [facility] is necessary. Dr. Sotelo accepts the patient in transfer. The patient desires to stay in the [place] area for his cardiology care as well. Counseled pt/family regarding: lab results, diagnosis, rad results Medical Desision Making - External Record(s) Reviewed Records reviewed as a part of evaluation & management: Inpatient (Old records including old laboratory data) - Discussion of managment Care discussed with:: on-call "doc" [facility] Reviewed:: Test results, Need for additional workup (Transfer to [facility] emergency department necessary) Agreed on:: Treatment plan - Social Determinants of Health Limited access to: transportation - Risk of complications The pt has a high risk of morbidity or mortality based on: Decision regarding hospitilization or escalation of hosp level of care - Departure Departure Disposition: Transfer Clinical Impression: Anemia, Angina at rest, Shortness of breath, Renal failure, Elevated brain natriuretic peptide (BNP) level, Elevated troponin I level, Hypertension Condition: Fair Critical Care Time: No Referrals: JAVIER ELLER [Primary Care Provider] - Follow up/PCP as directed
[2022-11-29 09:31] LABS: Absolute Neutrophil Ct (ANC) 5.99 x10^3/uL (1.4-6.9); BASOPHIL % 0.5 % (0.0-0.4); Basophil (Absolute #) 0.05 x10^3/uL (0-0.4); Eosinophil % 16.6 % (0.00-5.0); Eosinophil (Absolute #) 1.55 x10^3/uL (0-0.5); Hemoglobin 7.2 g/dL (12.5-18.0); IMMATURE GRAN # 0.04 x10^3u/L (0.00-0.03); IMMATURE GRAN % 0.4 % (0.00-0.4); Lymphocyte (Absolute #) 0.88 x10^3/uL (1.0-4.6); Lymphocytes % 9.4 % (24.0-44.0); Mean Cell Volume 98.7 fL (78-100); Mean Corpuscular Hemoglobin 30.9 pg (26-32); Mean Corpuscular Hgb Concent. 31.3 g/dL (32-36); Mean Platelet Volume 11.6 fL (7.5-11.0); Monocyte (Absolute #) 0.85 x10^3/uL (0.0-1.3); Monocytes % 9.1 % (0.0-12.0); Platelet Count 172 x10^3/uL (150-450); Red Blood Count 2.33 x10^6/uL (4.1-5.6); Red Cell Distribution Width 14.1 % (11.5-14.0); White Blood Count 9.4 x10^3/uL (4.0-10.5)
--- NOTE | 2022-11-29 09:32 | XRAY ---
Indication: Short of breath. Comparison: October 12, 2022 Portable chest remains inflated and clear. Heart not enlarged with interval CABG surgery. Bony thorax intact again with mild degenerative changes. Impression: Continued nonacute chest with chronic features.
[2022-11-29 09:55] LABS: ALBUMIN 3.5 g/dL (3.5-5.0); ANION GAP 20.7 MEQ/L (5-15); BILIRUBIN,TOTAL 0.4 mg/dL (0.2-1.3); Calcium 8.8 mg/dL (8.4-10.2); Creatinine 1 10.43 mg/dL (0.66-1.25); EST GLOMERULAR FILTRATION RATE 5.2 ML/MIN; Potassium 4.8 mmol/L (3.5-5.1); Total Protein 6.5 g/dL (6.3-8.2)
[2022-11-29 10:09] VITALS: PULSE 56
[2022-11-29 10:24] LABS: INFLUENZA A NEGATIVE (NEGATIVE); INFLUENZA B NEGATIVE (NEGATIVE); RESPIRATORY SYNCTIAL VIRUS NEGATIVE (Negative); SARS-CoV-2 Xpert Express NEGATIVE (NEGATIVE)
[2022-11-29 11:04] VITALS: BP 191/78; O2SAT 98
[2022-11-29] MEDS ORDERED: Ativan 2 MG/1 ML VIAL IV ONE (11:11)
[2022-11-29] MEDS ORDERED: Ativan 2 MG/1 ML VIAL ONE (11:18)
== END 2022-11-29 11:39 | disposition short-term general hospital (02) ==
LOC: ED 09:03
DX: D64.9 Anemia, unspecified (principal); I25.119 Atherosclerotic heart disease of native coronary artery with unspecified angina pectoris; I12.9 Hypertensive chronic kidney disease with stage 1 through stage 4 chronic kidney disease, or unspecified chronic kidney disease; N18.30 Chronic kidney disease, stage 3 unspecified; Z95.1 Presence of aortocoronary bypass graft; R06.02 Shortness of breath; R79.89 Other specified abnormal findings of blood chemistry; R77.8 Other specified abnormalities of plasma proteins; R05.9 Cough, unspecified; E78.5 Hyperlipidemia, unspecified; E11.22 Type 2 diabetes mellitus with diabetic chronic kidney disease; Z99.2 Dependence on renal dialysis; Z79.4 Long term (current) use of insulin; Z79.891 Long term (current) use of opiate analgesic; Z79.899 Other long term (current) drug therapy; Z59.82 Transportation insecurity; Z20.828 Contact with and (suspected) exposure to other viral communicable diseases
CPT/HCPCS: 0241U; 36000; 36415; 71045; 80053; 82947; 83880; 84484; 85025; 93005; 93041; 94760; 96374; 99285; J2060

== ENCOUNTER 2023-02-27 14:31 | Emergency (ER) | payer MEDICARE, OTHER ==
--- NOTE | 2023-02-27 14:32 | ERPHSYRPT ---
- History of Present Illness Time Seen by Provider: 02/27/23 14:32 Source: patient, family Exam Limitations: no limitations Physician History: This is a 72-year-old white male patient who has end-stage renal disease on dialysis as well as atrial fibrillation on amiodarone and Eliquis who within the last few months underwent a coronary artery bypass graft by Dr. Leal at [facility]. Patient also has a product safety head, Dr. Chong who also sees the patient and practices out of [facility]. Their preference is to go to [facility] if they are in need of transfer. Patient presents with confusion and slurred speech that per spouse's report actually occurred about 9 AM this morning before dialysis. Patient missed his last dialysis on 02/25/2023 because he had a migraine headache. Today, dialysis was not performed because they were unable to get the dialysis catheter functioning. During his stay at the dialysis center, he did appear to be confused to them and therefore they sent the patient to the emergency department for work-up and evaluation. The patient has a history of hypertension, diabetes as well as coronary artery disease as stated above and patient has a cardiac stent in place. He has had a history of strokes in the past. He has a history of migraine headaches. He has a history of anxiety and hyperlipidemia. He currently has no abdominal pain and denies chest pain and denies shortness of breath Timing/Duration: today Severity: mild Character of Deficits: other (Generalized weakness) Deficits: cannot stand, cannot walk (Secondary to weakness), weak Baseline/Normal Cognition: alert oriented x 3 Current Cognition: alert but confused (Mildly confused) Baseline Gait: walks only w/assistance Associated Symptoms: confusion (Mild), slurred speech (Slurred speech earlier) Allergies/Adverse Reactions: amlodipine Allergy (Severe, Verified 02/27/23 15:09) Swelling hydrocodone bitartrate [From Vicodin] Allergy (Intermediate, Verified 02/27/23 15:09) Nausea and Vomiting Home Medications: Hydralazine HCl 10 mg PO QID PRN 02/12/18 [History] Insulin NPH Human Isophane [Novolin N] 18 unit SQ UD 02/12/18 [History] Isosorbide Mononitrate 60 mg PO UD 02/12/18 [History] Lorazepam [Ativan] 2 mg PO BID 02/12/18 [History] Montelukast Sodium 10 mg [Singulair 10 MG] 10 mg PO DAILY 02/12/18 [History] Albuterol Sulfate [Proair Hfa] 8.5 gm IH DAILY PRN 03/17/21 [History] Fluticasone Propionate [Flonase NASAL] 16 gm NS DAILY 03/17/21 [History] Aspirin 81 gm Chew [Baby Aspirin 81 mg Chew] 81 mg PO DAILY 11/29/22 [History] Acetaminophen [Acetaminophen ER] 650 mg PO Q4HPRN PRN 01/21/23 [History] Amiodarone HCl 200 mg PO DAILY 01/21/23 [History] Amlodipine Besylate [Norvasc] 5 mg PO BID 01/21/23 [History] Apixaban [Eliquis] 2.5 mg PO BID 01/21/23 [History] Atorvastatin Calcium 80 mg PO DAILY 01/21/23 [History] Bisacodyl [Dulcolax] 10 mg RC DAILY PRN PRN 01/21/23 [History] HydrALAzine HCL 25 MG TAB [Apresoline 25 MG TABLET] 25 mg PO BIDWM 01/21/23 [History] Insulin Glargine [Lantus Insulin] 20 unit SQ DAILY 01/21/23 [History] Insulin Lispro [Humalog Kwikpen] 100 unit SQ UD 01/21/23 [History] PARoxetine HCL [Paroxetine HCl] 40 mg PO DAILY 01/21/23 [History] Polyethylene Glycol 3350 [Miralax] 17 gm PO DAILY PRN PRN 01/21/23 [History] Sennosides/Docusate Sodium [Senna Plus 8.6-50 mg Softgel] 1 each PO BID PRN 01/21/23 [History] Hx Tetanus, Diphtheria Vaccination/Date Given: No Hx Influenza Vaccination/Date Given: Yes Hx Pneumococcal Vaccination/Date Given: Yes Travel Risk - International Travel Have you traveled outside of the country in past 3 weeks: No - Coronavirus Screening Are you exhibiting any of the following symptoms?: No Close contact with a COVID-19 positive Pt in past 14-21 Days: No - Vaccine Status Have you recieved a Covid-19 vaccination: Yes Slot Floor 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 - Vaccination Dates Date of 2cond Vaccination (if applicable): 2020 - Review of Systems Constitutional: Weakness Eyes: No Symptoms Ears, Nose, & Throat: No Symptoms Respiratory: No Symptoms Cardiac: No Symptoms Abdominal/Gastrointestinal: No Symptoms Genitourinary Symptoms: No Symptoms Musculoskeletal: No Symptoms Skin: No Symptoms Neurological: Speech Changes, Other (Mild confusion) Psychological: No Symptoms Endocrine: No Symptoms Hematologic/Lymphatic: No Symptoms Immunological/Allergic: No Symptoms All Other Systems: Reviewed and Negative - Past Medical History Pertinent Past Medical History: Yes Neurological History: Migraines, Stroke ENT History: Cataracts Cardiac History: Arrhythmia, Coronary Artery Disease, Hypertension, Other Respiratory History: Sleep Apnea, Other Endocrine Medical History: Diabetes Type II Musculoskeletal History: Fractures, Osteoarthritis GI Medical History: No Pertinent History History: Renal Disease Psycho-Social History: Anxiety Male Reproductive Disorders: No Pertinent History Other Medical History: stage 3 kidney failure (30-35%), pulmonary hypertension. Fractured L knee when he had a meniscus repair - Past Surgical History Past Surgical History: Yes Neuro Surgical History: No Pertinent History Cardiac: Cardiac Catheterization, Cardiac Stent Respiratory: No Pertinent History Gastrointestinal: No Pertinent History Genitourinary: No Pertinent History Musculoskeletal: Orthopedic Surgery Male Surgical History: No Pertinent History Other Surgical History: tonsils,lt knee surgery, x1 cardiac stent, knee replacement right knee, right shoulder rotator cuff sx, cataract removed R eye - Social History Smoking Status: Former smoker Exposure to second hand smoke: No Drug Use: none Patient Lives Alone: No Significant Family History: no pertinent family hx - Nursing Vital Signs Nursing Vital Signs: Initial Vital Signs Temperature 97.6 F 02/27/23 14:44 Pulse Rate 56 L 02/27/23 14:44 Respiratory Rate 16 02/27/23 14:44 Blood Pressure 130/52 02/27/23 14:44 O2 Sat by Pulse Oximetry 98 02/27/23 14:44 Pain Scale Pain Intensity 0 - Maria Esther Coma Scale Best Eye Response (Welch): (4) open spontaneously Best Verbal Response (Maria Esther): (4) confused conversation Best Motor Response (Maria Esther): (6) obeys commands Maria Esther Total: 14 - Physical Exam General Appearance: no apparent distress, alert Eye Exam: bilateral eye: normal inspection, PERRL, EOMI Ears, Nose, Throat Exam: dry mucous membranes Neck Exam: normal inspection, non-tender, supple, full range of motion Respiratory: normal breath sounds, lungs clear, airway intact, No chest tenderness, No respiratory distress Cardiovascular: normal heart sounds, normal peripheral pulses, bradycardia Gastrointestinal: soft, normal bowel sounds, No tenderness Rectal Exam: not done Back Exam: normal inspection, normal range of motion, No CVA tenderness, No vertebral tenderness Extremity Exam: normal inspection, normal range of motion, pelvis stable Mental Status: alert, oriented x 3, lethargy (Mildly) finance admin Exam: normal hearing, PERRL, tongue midline Skin Exam: warm, dry, pale (Mildly) SpO2 Interpretation: normal O2 Delivery: Room Air - Course Nursing assessment & vital signs reviewed: Yes EKG Interpreted by Me: RATE, Sinus Yves, NORMAL AXIS, NORMAL QRS, Other (Computer reads short [place] interval. Computer also reads minimal ST elevation anterior leads. When I am assessing leads V3 and V4 I do not appreciate an ST elevation.) Ordered Tests: Active Orders 24 hr Category Date Time Status Applied Biology Professor STAT Care 02/27/23 15:02 Active EKG-ER Only STAT Care 02/27/23 15:00 Active IV Insertion STAT Care 02/27/23 15:00 Active NPO (ED) STAT Care 02/27/23 15:01 Active Pulse Oximetry (ED) STAT Care 02/27/23 15:00 Active HEAD WITHOUT CONTRAST [CT] Stat Exams 02/27/23 14:32 Completed MRI BRAIN W/O CONTRAST [MRI] Stat Exams 02/27/23 15:26 Completed BLOOD CULTURE Stat Lab 02/27/23 15:18 Received CBC W DIFF Stat Lab 02/27/23 15:15 Completed CMP Stat Lab 02/27/23 15:15 Completed PROTIME WITH INR Stat Lab 02/27/23 15:15 Completed UA W/RFX UR CULTURE Stat Lab 02/27/23 15:02 Ordered Medication Summary Discontinued Medications Generic Name Dose Route Start Last Admin Trade Name Freq PRN Reason Stop Dose Admin Apixaban 5 mg 02/27/23 16:57 02/27/23 17:40 Apixaban 2.5 Mg Tablet PO 02/27/23 16:58 5 mg STAT ONE Administration Lab/Rad Data: Laboratory Result Diagrams 02/27/23 15:15 02/27/23 15:15 Laboratory Results 02/27/23 02/27/23 02/27/23 Range/Units 15:15 15:15 15:15 WBC 9.6 (4.0-10.5) x10^3/uL RBC 3.40 L (4.1-5.6) x10^6/uL Hgb 10.0 L (12.5-18.0) g/dL Hct 31.1 L (42-50) % MCV 91.5 (78-100) fL MCH 29.4 (26-32) pg MCHC 32.2 (32-36) g/dL RDW 14.2 H (11.5-14.0) % Plt Count 109 L (150-450) x10^3/uL MPV 11.5 H (7.5-11.0) fL Gran % 49.7 (36.0-66.0) % Immature Gran % (Auto) 0.2 (0.00-0.4) % Nucleat RBC Rel Count 0.0 (0.00-0.1) % Eos # (Auto) 3.02 H (0-0.5) x10^3/uL Immature Gran # (Auto) 0.02 (0.00-0.03) x10^3u/L Absolute Lymphs (auto) 1.02 (1.0-4.6) x10^3/uL Absolute Monos (auto) 0.68 (0.0-1.3) x10^3/uL Absolute Nucleated RBC 0.00 (0.00-0.01) x10^3u/L Lymphocytes % 10.6 L (24.0-44.0) % Monocytes % 7.1 (0.0-12.0) % Eosinophils % 31.4 H (0.00-5.0) % Basophils % 1.0 (0.0-0.4) % Absolute Granulocytes 4.78 (1.4-6.9) x10^3/uL Basophils # 0.10 (0-0.4) x10^3/uL PT 11.0 (9.4-12.5) SECONDS INR 1.01 (0.8-3.0) Sodium 135 L (137-145) mmol/L Potassium 4.3 (3.5-5.1) mmol/L Chloride 100 (98-107) mmol/L Carbon Dioxide 22 (22-30) mmol/L Anion Gap 17.1 H (5-15) MEQ/L BUN 63 H (9-20) mg/dL Creatinine 7.99 H (0.66-1.25) mg/dL Estimated GFR 7.1 ML/MIN Glucose 216 H (74-106) mg/dL Calcium 8.8 (8.4-10.2) mg/dL Total Bilirubin 0.30 (0.2-1.3) mg/dL AST 23 (17-59) U/L ALT 15 (0-50) U/L Alkaline Phosphatase 77 (38-126) U/L Serum Total Protein 6.2 L (6.3-8.2) g/dL Albumin 3.4 L (3.5-5.0) g/dL Slides for Path Review YES - Progress Progress Note: 02/27/23 15:30 CT scan of the head without contrast shows left periventricular suspected subacute lacunar infarction. In addition there is left periventricular and left thalamic old lacunar infarctions. 02/27/23 15:33 Additional history obtained from the dialysis center includes the center only dialyze the patient for approximately 1 hour out of a 3-hour planned session. Additionally, the patient admits to not taking his Eliquis for several days because it is too expensive. 02/27/23 15:49 I spoke with the teleneurologist Dr. Lynn and reviewed the patient history, medication list, laboratory data I had back at the time, physical findings on examination and the CT scan head without contrast report impression. 02/27/23 16:52 I spoke a second time with Dr. Lynn the teleneurologist after she evaluated the patient clinically and she states that the patient needs to restart his Eliquis. She states that he needs to be admitted to fully evaluate this patient from the cardiac standpoint since the patient does have cardiac issues, from the nephrology standpoint for dialysis and to obtain an echocardiogram and carotid Dopplers. Dr. Lynn also stated that she told the patient that if he is having trouble obtaining Eliquis prescriptions that he needs to speak with the primary prescribing provider to help him receive that necessary medication. 02/27/23 16:54 This patient's medical issue is 1 of high complexity. The level of complexity and the work-up performed based on review of the patient's past medical history, review of the patient's medication list, review of the patient's drug allergy list, history present illness and physical findings on examination. Patient underwent CT scan of the head which had some acute/subacute findings as well as chronic findings regarding infarctions. Patient also underwent a twelve-lead EKG, urinalysis, troponin level, CBC, CMP, PT/INR. I reviewed the results of the work-up. I discussed these results with the teleneurologist and the patient and family. We are awaiting the results of the MRI of the brain without contrast. Patient is going to require dialysis. Based on the teleneurologist recommendations I am going to provide the patient with his Eliquis medication here in the emergency department. 02/27/23 18:07 The MRI of the brain without contrast shows no hyperacute or acute infarctions. This was read by/interpreted by the radiologist. This patient requires several specialist to be involved in his care. He needs to see a event marketing manager for the bradycardia, nephrology for his acute on chronic renal failure which he will also require dialysis for and a consultation with neurology. The patient and the patient family want to stay as close as possible to home. We contacted [facility] and they do not have neurology on staff. However, [facility] in [facility] does have neurology for consultation. We will contact [facility] for possible transfer. 02/27/23 18:[address] Crandall the neurologist at [facility] in [facility]. After I reviewed the patient history, physical findings, radiology and laboratory study results he stated that this patient is not having any type of acute stroke issue. He does not feel the patient needs to be admitted for an acute neurologic issue. Hospitalist Dr. Atwood at [facility] stated that Dr. Munoz, their product safety head does not see any other product safety head patient's. 02/27/23 18:44 I then called [facility] in [facility] spoke with a Dr. Adamson, the emergency room physician at their facility. I reviewed the patient history, the work-up results, and the patient's medication list as well as the patient's medical history in the past. I reviewed the current vital signs and the work-up results including CT scan of the head without contrast followed by the MRI of the brain without contrast. He accepts the patient in transfer. Counseled pt/family regarding: lab results, diagnosis, rad results Medical Desision Making - Independent Historian Additional History obtained from: Spouse - Discussion of managment Care discussed with:: specialist (Teleneurologist Dr. Lynn) - Social Determinants of Health Pt's dx & treatment plan are significantly limited by SDOH: financial hardships Limited access to: medical care - Diagnostic Testing Diagnostic test were ordered, analyzed, and reviewed by me: Yes Radiological Interpretation: Reviewed by me, Teleradiologist Report - Risk of complications The pt has a high risk of morbidity or mortality based on: Decision regarding hospitilization or escalation of hosp level of care - Departure Departure Disposition: Transfer Clinical Impression: Acute on chronic renal failure, Chronic anemia, Altered mental status, Bradycardia Condition: Fair Critical Care Time: Yes Critical Care Time(excluding separately billable procedures): Critical 30-74 mins (45) Referrals: JAVIER ELLER [Primary Care Provider] - Follow up/PCP as directed
--- NOTE | 2023-02-27 15:17 | XRAY ---
CLINICAL HISTORY:Slurred speech. COMPARISON:None. TECHNIQUES:CT scan of the brain without contrast administration. Images were acquired in axial cuts with coronal and sagittal reformation. Total DLP: 1031.4 mGy*cm. CTDI: 53.92 mGy. FINDINGS: Left periventricular faintly hypodense small focal lesion is noted about 8 x 7 mm (series 2 image 39/70, series 602, image 54/104) could represent subacute lacunar infarction. Left basal ganglionic old lacunar infarction is noted 7 x 5 mm in size. Age-matched central and cortical involutional brain changes as evident by prominent cortical sulci, widened basal cisterns and mild ventricular dilatation. Left thalamic old lacunar infarction is noted 4 x 3 mm in size. No shift of the midline structures. No evidence of intra or extra axial recent hematoma. Normal appearance of the posterior fossa structures including the brainstem and cerebellum. Bone window settings showed no evidence of fractures or destructive lesions. IMPRESSION: 1. Left periventricular suspected subacute lacunar infarction. MRI is advised for confirmation. 2. 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 3. Age-matched involutional brain changes. ED department was called at [phone] at 02:10 PM HAIR DESIGNER, 02/27/2023, and results were verbally informed to Patricia. Electronically Signed by: Violeta Doll MD. (02/27/2023 14:14:51 HAIR DESIGNER)
[2023-02-27 15:23] LABS: Absolute Neutrophil Ct (ANC) 4.78 x10^3/uL (1.4-6.9); Eosinophil % 31.4 % (0.00-5.0); Eosinophil (Absolute #) 3.02 x10^3/uL (0-0.5); Hematocrit 31.1 % (42-50); IMMATURE GRAN # 0.02 x10^3u/L (0.00-0.03); IMMATURE GRAN % 0.2 % (0.00-0.4); Lymphocyte (Absolute #) 1.02 x10^3/uL (1.0-4.6); Lymphocytes % 10.6 % (24.0-44.0); Mean Cell Volume 91.5 fL (78-100); Mean Corpuscular Hemoglobin 29.4 pg (26-32); Mean Corpuscular Hgb Concent. 32.2 g/dL (32-36); Mean Platelet Volume 11.5 fL (7.5-11.0); Monocyte (Absolute #) 0.68 x10^3/uL (0.0-1.3); Monocytes % 7.1 % (0.0-12.0); Neutrophil % 49.7 % (36.0-66.0); Platelet Count 109 x10^3/uL (150-450); Red Cell Distribution Width 14.2 % (11.5-14.0); White Blood Count 9.6 x10^3/uL (4.0-10.5)
[2023-02-27 15:39] LABS: INR 1.01 (0.8-3.0)
[2023-02-27 15:42] LABS: Slide Review 1 YES
[2023-02-27 15:46] LABS: ALBUMIN 3.4 g/dL (3.5-5.0); ANION GAP 17.1 MEQ/L (5-15); BILIRUBIN,TOTAL 0.3 mg/dL (0.2-1.3); Calcium 8.8 mg/dL (8.4-10.2); Creatinine 1 7.99 mg/dL (0.66-1.25); EST GLOMERULAR FILTRATION RATE 7.1 ML/MIN; Potassium 4.3 mmol/L (3.5-5.1); Total Protein 6.2 g/dL (6.3-8.2)
[2023-02-27] MEDS ORDERED: ELIQUIS 2.5 MG TABLET PO ONE (16:57)
--- NOTE | 2023-02-27 18:17 | XRAY ---
CLINICAL HISTORY:Stroke symptoms; COMPARISON:CT dated 02/27/2023; TECHNIQUES:Different MRI pulse sequences were performed in different planes without GD-DTPA injection for the brain. Images were sent through PACs for interpretation; FINDINGS: No hyperacute or acute infarctions could be depicted. There are a few scattered abnormal signal intensity areas noted in the left capsulostriate location, in the subcortical white matter of the right frontal lobe, and in deep bilateral paraventricular white matter. these appear isointense on T1, hyperintense on T2WI and FLAIR, no diffusion restriction noted on DWI and ADC images, suggestive of microvascular ischemic changes. There is a left para-thalamic old lacunar sequela noted. The rest of the cerebral parenchyma appears preserved. No abnormal intensities are seen in the basal ganglia, thalami, brainstem, and cerebellum. The ventricular system, cortical sulci, and basal cisterns are prominent consistent with senile changes. No shift of midline structures. The visualized calvarium, major cerebral blood vessels, and orbits are unremarkable. Mild mucosal thickening in both maxillary sinuses and ethmoid air cells. Normal MRI appearance of the petrous temporal bones, brainstem, vestibule cochlear nerves, and cerebellopontine angles with no definite masses. No intracerebral or extra-axial hematomas or masses. Normal MRI appearance of orbital structures, both globes, optic nerves, optic chiasm, optic tracts and optic radiations. IMPRESSION: 1. The above-mentioned findings are suggestive of mild to moderate microvascular ischemic changes and senile changes. 2. No hyperacute or acute infarctions could be depicted. Electronically Signed by: Violeta Doll MD. (02/27/2023 17:01:15 SENIOR INFRASTRUCTURE ENGINEER)
[2023-02-27 18:22] VITALS: BP 170/68; PULSE 45; O2SAT 98
[2023-02-27 19:00] LABS: Appearance Clear (Clear); Bacteria None Seen /HPF (None Seen); Bilirubin Negative (Negative); Blood Negative (Negative); Epithelial Cells None Seen /HPF (None Seen); Glucose, Urine 250 mg/dL (Negative); Hyaline Casts NONE SEEN /LPF (0-2); Ketones Negative (Negative); Leukocyte Esterase Negative (Negative); Nitrite Negative (Negative); Ph 7.5 (4.6-8.0); Protein,Urine Dip >=1000 (Negative); RBC 0-2 /HPF (0-5); Specific Gravity 1.015 (1.005-1.030); Urobilinogen 0.2 mg/dL (0.2); WBC 0-2 /HPF (0-5)
[2023-02-27 19:05] LABS: ADD URINE CULTURE? NO (NO)
== END 2023-02-27 19:33 | disposition short-term general hospital (02) ==
LOC: ED 14:31
DX: R41.82 Altered mental status, unspecified (principal); I12.0 Hypertensive chronic kidney disease with stage 5 chronic kidney disease or end stage renal disease; E11.22 Type 2 diabetes mellitus with diabetic chronic kidney disease; N18.6 End stage renal disease; R00.1 Bradycardia, unspecified; D64.9 Anemia, unspecified; I63.89 Other cerebral infarction; I48.0 Paroxysmal atrial fibrillation; Z79.4 Long term (current) use of insulin; Z79.01 Long term (current) use of anticoagulants; Z79.899 Other long term (current) drug therapy; Z59.9 Problem related to housing and economic circumstances, unspecified; Z91.141 Patient's other noncompliance with medication regimen due to financial hardship; Z75.9 Unspecified problem related to medical facilities and other health care
CPT/HCPCS: 36000; 36415; 70450; 70551; 80053; 81001; 82140; 85025; 85610; 87040; 93005; 93041; 94760; 99285; 99291; Q3014; A9270-GY

== ENCOUNTER 2023-04-28 00:18 | Emergency (ER) | payer MEDICARE, OTHER ==
[2023-04-28] MEDS ORDERED: MORPHINE SULFATE 4 MG INJ IV ONE (00:36)
[2023-04-28] MEDS ORDERED: Sodium Chloride 0.9% 1000 ML 1,000 ML IV SCH (00:45)
[2023-04-28 00:47] LABS: Absolute Neutrophil Ct (ANC) 8.92 x10^3/uL (1.4-6.9); BASOPHIL % 0.3 % (0.0-0.4); Basophil (Absolute #) 0.03 x10^3/uL (0-0.4); Eosinophil % 2.4 % (0.00-5.0); Eosinophil (Absolute #) 0.28 x10^3/uL (0-0.5); Hematocrit 34.8 % (42-50); Hemoglobin 11.2 g/dL (12.5-18.0); IMMATURE GRAN # 0.04 x10^3u/L (0.00-0.03); IMMATURE GRAN % 0.3 % (0.00-0.4); Lymphocyte (Absolute #) 1.18 x10^3/uL (1.0-4.6); Lymphocytes % 10.3 % (24.0-44.0); Mean Cell Volume 93.8 fL (78-100); Mean Corpuscular Hemoglobin 30.2 pg (26-32); Mean Corpuscular Hgb Concent. 32.2 g/dL (32-36); Mean Platelet Volume 11.2 fL (7.5-11.0); Monocyte (Absolute #) 1.01 x10^3/uL (0.0-1.3); Monocytes % 8.8 % (0.0-12.0); NUCLEATED RBC # 0.06 x10^3u/L (0.00-0.01); NUCLEATED RBC % 0.5 % (0.00-0.1); Neutrophil % 77.9 % (36.0-66.0); Platelet Count 218 x10^3/uL (150-450); Red Blood Count 3.71 x10^6/uL (4.1-5.6); Red Cell Distribution Width 19.5 % (11.5-14.0); White Blood Count 11.5 x10^3/uL (4.0-10.5)
[2023-04-28 00:48] VITALS: TEMP 97.1
[2023-04-28] MEDS ORDERED: MORPHINE SULFATE 4 MG INJ ONE (00:48)
[2023-04-28] MEDS ORDERED: Sodium Chloride 0.9% 1000 ML 1,000 ML ONE (00:48)
--- NOTE | 2023-04-28 00:51 | ERPHSYRPT ---
- History of Present Illness Time Seen by Provider: 04/28/23 00:48 Source: patient, family Exam Limitations: no limitations Patient Subjective Stated Complaint: pt states he fell twice on and has been having back pain since. states he fell backwards and hit his back and head. pt now has confusion. Triage Nursing Assessment: pt oriented to person and place only. states pt has had some confusion since saturday night. pupils equal and reactive. bilat upper and lower ext strength equal. dialysis cath to lt subclavian. fistula to lt arm, thrill and bruit present. Physician History: pt states he fell twice on and has been having back pain since. states he fell backwards and hit his back and head. pt now has confusion. Occurred: yesterday Reason for Fall: fainted, fell from standing pos Injuries/Pain Location: head, back Loss of Consciousness: brief (seconds) Severity of Pain-Max: moderate Severity of Pain-Current: moderate Modifying Factors: Improves With: nothing Associated Symptoms (Fall): back pain Allergies/Adverse Reactions: amlodipine Allergy (Severe, Verified 04/28/23 00:47) Swelling hydrocodone bitartrate [From Vicodin] Allergy (Intermediate, Verified 04/28/23 00:47) Nausea and Vomiting Home Medications: Hydralazine HCl 10 mg PO QID PRN 02/12/18 [History] Insulin NPH Human Isophane [Novolin N] 18 unit SQ UD 02/12/18 [History] Isosorbide Mononitrate 60 mg PO UD 02/12/18 [History] Lorazepam [Ativan] 2 mg PO BID 02/12/18 [History] Montelukast Sodium 10 mg [Singulair 10 MG] 10 mg PO DAILY 02/12/18 [History] Albuterol Sulfate [Proair Hfa] 8.5 gm IH DAILY PRN 03/17/21 [History] Fluticasone Propionate [Flonase NASAL] 16 gm NS DAILY 03/17/21 [History] Aspirin 81 gm Chew [Baby Aspirin 81 mg Chew] 81 mg PO DAILY 11/29/22 [History] Acetaminophen [Acetaminophen ER] 650 mg PO Q4HPRN PRN 01/21/23 [History] Amiodarone HCl 200 mg PO DAILY 01/21/23 [History] Amlodipine Besylate [Norvasc] 5 mg PO BID 01/21/23 [History] Apixaban [Eliquis] 2.5 mg PO BID 01/21/23 [History] Atorvastatin Calcium 80 mg PO DAILY 01/21/23 [History] Bisacodyl [Dulcolax] 10 mg RC DAILY PRN PRN 01/21/23 [History] HydrALAzine HCL 25 MG TAB [Apresoline 25 MG TABLET] 25 mg PO BIDWM 01/21/23 [History] Insulin Glargine [Lantus Insulin] 20 unit SQ DAILY 01/21/23 [History] Insulin Lispro [Humalog Kwikpen] 100 unit SQ UD 01/21/23 [History] PARoxetine HCL [Paroxetine HCl] 40 mg PO DAILY 01/21/23 [History] Polyethylene Glycol 3350 [Miralax] 17 gm PO DAILY PRN PRN 01/21/23 [History] Sennosides/Docusate Sodium [Senna Plus 8.6-50 mg Softgel] 1 each PO BID PRN 01/21/23 [History] Hx Tetanus, Diphtheria Vaccination/Date Given: Yes Hx Influenza Vaccination/Date Given: Yes Hx Pneumococcal Vaccination/Date Given: Yes Immunizations Up to Date: Yes Travel Risk - International Travel Have you traveled outside of the country in past 3 weeks: No - Coronavirus Screening Are you exhibiting any of the following symptoms?: No Close contact with a COVID-19 positive Pt in past 14-21 Days: No - Vaccine Status Have you recieved a Covid-19 vaccination: Yes [facility]: Moderna - Vaccination Dates Date of 2cond Vaccination (if applicable): 2020 - Review of Systems Constitutional: Weakness, No Fever, No Chills Eyes: No Symptoms Ears, Nose, & Throat: No Symptoms Respiratory: No Cough, No Dyspnea Cardiac: No Chest Pain, No Edema, No Syncope Abdominal/Gastrointestinal: No Abdominal Pain, No Nausea, No Vomiting, No Diarrhea Genitourinary Symptoms: No Dysuria Musculoskeletal: Back Pain, Fall, No Neck Pain Skin: No Rash Neurological: No Dizziness, No Focal Weakness, No Sensory Changes Psychological: No Symptoms Endocrine: No Symptoms All Other Systems: Reviewed and Negative - Past Medical History Pertinent Past Medical History: Yes Neurological History: Migraines, Stroke ENT History: Cataracts Cardiac History: Arrhythmia, Coronary Artery Disease, Hypertension, Other Respiratory History: Sleep Apnea, Other Endocrine Medical History: Diabetes Type II Musculoskeletal History: Fractures, Osteoarthritis GI Medical History: No Pertinent History History: Renal Disease Psycho-Social History: Anxiety Male Reproductive Disorders: No Pertinent History Other Medical History: pulmonary hypertension. Fractured L knee when he had a m eniscus repair - Past Surgical History Past Surgical History: Yes Neuro Surgical History: No Pertinent History Cardiac: CABG, Cardiac Catheterization, Cardiac Stent Respiratory: No Pertinent History Gastrointestinal: No Pertinent History Genitourinary: No Pertinent History Musculoskeletal: Orthopedic Surgery Male Surgical History: No Pertinent History Other Surgical History: tonsils,lt knee surgery, x1 cardiac stent, knee replacement right knee, right shoulder rotator cuff sx, cataract removed R eye. cabg- 4 vessel in sep 2022 - Social History Smoking Status: Former smoker Exposure to second hand smoke: No Drug Use: none Patient Lives Alone: No Significant Family History: no pertinent family hx - Nursing Vital Signs Nursing Vital Signs: Initial Vital Signs Temperature 97.1 F 04/28/23 00:22 Pulse Rate 136 H 04/28/23 00:22 Respiratory Rate 18 04/28/23 00:22 Blood Pressure 154/97 04/28/23 00:22 O2 Sat by Pulse Oximetry 95 04/28/23 00:22 Pain Scale Pain Intensity 7 - Maria Esther Coma Score Best Eye Response ([place]): (4) open spontaneously Best Verbal Response ([place]): (5) oriented Best Motor Response ([place]): (6) obeys commands Maria Esther Total: 15 - Physical Exam General Appearance: no apparent distress, alert Head Injury: no evidence of injury Eye Exam: PERRL/EOMI ENT Exam: airway nml Neck Exam: normal inspection, No tenderness Respiratory/Chest Exam: decreased breath sounds, No chest tenderness, No respiratory distress Cardiovascular Exam: irregular Gastrointestinal Exam: soft, No tenderness, No distention, No guarding, No ecchymosis Back Exam: normal inspection, decreased range of motion, muscle spasm, No vertebral tenderness Extremity Exam: normal inspection, normal range of motion, pelvis stable, No deformities Neurologic Exam: alert, oriented x 3, cooperative, sensation nml, No motor deficits Skin Exam: normal color, warm, dry SpO2: 98 - Course Nursing assessment & vital signs reviewed: Yes EKG Interpreted by Me: A-fib Rhythm Strip: Atrial Fibrillation - Radiology Exams L-Spine X-ray Interpretation: Reviewed by me - CT Exams Head CT Interpretation: Tele-radiologist Report Ordered Tests: Active Orders 24 hr Category Date Time Status EKG-ER Only STAT Care 04/28/23 00:40 Active HEAD WITHOUT CONTRAST [CT] Stat Exams 04/28/23 00:38 Taken LUMBAR LIMITED (2 OR 3 VIEWS) Stat Exams 04/28/23 00:37 Taken BLOOD CULTURE Stat Lab 04/28/23 01:41 Received BNPII [NT PRO BNPII] Stat Lab 04/28/23 01:00 Completed CBC W DIFF Stat Lab 04/28/23 00:44 Completed CMP Stat Lab 04/28/23 00:44 Completed TROPONIN Stat Lab 04/28/23 00:44 Completed UA W/RFX UR CULTURE Stat Lab 04/28/23 00:37 Ordered Medication Summary Generic Name Dose Route Start Last Admin Trade Name Freq PRN Reason Stop Dose Admin Sodium Chloride 1,000 mls @ 100 mls/hr 04/28/23 00:45 Sodium Chloride 0.9% 1000 Ml IV 05/28/23 00:44 .Q10H PUSHPA Discontinued Medications Generic Name Dose Route Start Last Admin Trade Name Freq PRN Reason Stop Dose Admin Morphine Sulfate 4 mg 04/28/23 00:36 04/28/23 01:40 Morphine Sulfate 4 Mg/Ml Injection IV 04/28/23 00:37 4 mg STAT ONE Administration Morphine Sulfate Confirm 04/28/23 00:48 Morphine Sulfate 4 Mg/Ml Injection Administered 04/28/23 00:49 Dose 4 mg .ROUTE .STK-MED ONE Lab/Rad Data: Laboratory Result Diagrams 04/28/23 00:44 04/28/23 00:44 Laboratory Results 04/28/23 04/28/23 04/28/23 Range/Units 01:00 00:44 00:44 WBC (4.0-10.5) x10^3/uL RBC (4.1-5.6) x10^6/uL Hgb (12.5-18.0) g/dL Hct (42-50) % MCV (78-100) fL MCH (26-32) pg MCHC (32-36) g/dL RDW (11.5-14.0) % Plt Count (150-450) x10^3/uL MPV (7.5-11.0) fL Gran % (36.0-66.0) % Immature Gran % (Auto) (0.00-0.4) % Nucleat RBC Rel Count (0.00-0.1) % Eos # (Auto) (0-0.5) x10^3/uL Immature Gran # (Auto) (0.00-0.03) x10^3u/L Absolute Lymphs (auto) (1.0-4.6) x10^3/uL Absolute Monos (auto) (0.0-1.3) x10^3/uL Absolute Nucleated RBC (0.00-0.01) x10^3u/L Lymphocytes % (24.0-44.0) % Monocytes % (0.0-12.0) % Eosinophils % (0.00-5.0) % Basophils % (0.0-0.4) % Absolute Granulocytes (1.4-6.9) x10^3/uL Basophils # (0-0.4) x10^3/uL Sodium 133 L (137-145) mmol/L Potassium 6.1 H* (3.5-5.1) mmol/L Chloride 94 L (98-107) mmol/L Carbon Dioxide 18 L (22-30) mmol/L Anion Gap 27.5 H (5-15) MEQ/L BUN 94 H (9-20) mg/dL Creatinine 10.52 H (0.66-1.25) mg/dL Estimated GFR 5.1 ML/MIN Glucose 272 H (74-106) mg/dL Calcium 9.3 (8.4-10.2) mg/dL Total Bilirubin 0.60 (0.2-1.3) mg/dL AST 35 (17-59) U/L ALT 41 (0-50) U/L Alkaline Phosphatase 136 H (38-126) U/L Troponin I 0.154 H* (0.000-0.034) ng/mL NT-Pro-B Natriuret Pep > 97349 (<300) pg/mL Serum Total Protein 6.3 (6.3-8.2) g/dL Albumin 3.8 (3.5-5.0) g/dL 04/28/23 Range/Units 00:44 WBC 11.5 H (4.0-10.5) x10^3/uL RBC 3.71 L (4.1-5.6) x10^6/uL Hgb 11.2 L (12.5-18.0) g/dL Hct 34.8 L (42-50) % MCV 93.8 (78-100) fL MCH 30.2 (26-32) pg MCHC 32.2 (32-36) g/dL RDW 19.5 H (11.5-14.0) % Plt Count 218 (150-450) x10^3/uL MPV 11.2 H (7.5-11.0) fL Gran % 77.9 H (36.0-66.0) % Immature Gran % (Auto) 0.3 (0.00-0.4) % Nucleat RBC Rel Count 0.5 H (0.00-0.1) % Eos # (Auto) 0.28 (0-0.5) x10^3/uL Immature Gran # (Auto) 0.04 H (0.00-0.03) x10^3u/L Absolute Lymphs (auto) 1.18 (1.0-4.6) x10^3/uL Absolute Monos (auto) 1.01 (0.0-1.3) x10^3/uL Absolute Nucleated RBC 0.06 H (0.00-0.01) x10^3u/L Lymphocytes % 10.3 L (24.0-44.0) % Monocytes % 8.8 (0.0-12.0) % Eosinophils % 2.4 (0.00-5.0) % Basophils % 0.3 (0.0-0.4) % Absolute Granulocytes 8.92 H (1.4-6.9) x10^3/uL Basophils # 0.03 (0-0.4) x10^3/uL Sodium (137-145) mmol/L Potassium (3.5-5.1) mmol/L Chloride (98-107) mmol/L Carbon Dioxide (22-30) mmol/L Anion Gap (5-15) MEQ/L BUN (9-20) mg/dL Creatinine (0.66-1.25) mg/dL Estimated GFR ML/MIN Glucose (74-106) mg/dL Calcium (8.4-10.2) mg/dL Total Bilirubin (0.2-1.3) mg/dL AST (17-59) U/L ALT (0-50) U/L Alkaline Phosphatase (38-126) U/L Troponin I (0.000-0.034) ng/mL NT-Pro-B Natriuret Pep (<300) pg/mL Serum Total Protein (6.3-8.2) g/dL Albumin (3.5-5.0) g/dL - Progress Progress: unchanged Discussed with Dr.: Other ([facility] (Dr Tabares)) Counseled pt/family regarding: lab results, diagnosis, need for follow-up, rad results Medical Desision Making - Diagnostic Testing Diagnostic test were ordered, analyzed, and reviewed by me: Yes Radiological Interpretation: Reviewed by me, Teleradiologist Report - Risk of complications The pt has a high risk of morbidity or mortality based on: Drug therapy requiring intensive monitoring for toxicity, Decision regarding hospitilization or escalation of hosp level of care - Departure Departure Disposition: Transfer ([facility]) Clinical Impression: ESRD (end stage renal disease) Atrial flutter Qualifiers: Atrial flutter type: typical Qualified Code(s): I48.3 - Typical atrial flutter Acute on chronic renal failure Qualifiers: Acute renal failure type: unspecified Chronic kidney disease stage: on chronic dialysis Qualified Code(s): N17.9 - Acute kidney failure, unspecified; N18.9 - Chronic kidney disease, unspecified; Z99.2 - Dependence on renal dialysis Condition: Stable Critical Care Time: Yes Critical Care Time(excluding separately billable procedures): Critical 30-74 mins Referrals: JAVIER ELLER [Primary Care Provider] - Follow up/PCP as directed
[2023-04-28 01:00] LABS: ALBUMIN 3.8 g/dL (3.5-5.0); ANION GAP 27.5 MEQ/L (5-15); BILIRUBIN,TOTAL 0.6 mg/dL (0.2-1.3); Calcium 9.3 mg/dL (8.4-10.2); Creatinine 1 10.52 mg/dL (0.66-1.25); EST GLOMERULAR FILTRATION RATE 5.1 ML/MIN; Total Protein 6.3 g/dL (6.3-8.2)
[2023-04-28 01:04] LABS: Potassium 6.1 mmol/L (3.5-5.1)
--- NOTE | 2023-04-28 02:45 | XRAY ---
CLINICAL HISTORY:fall, Head injury COMPARISON:Comparison made with prior CT brain dated 02/27/2023. TECHNIQUE:Continuous axial nonenhanced CT of brain images was obtained.; Coronal and sagittal images were also obtained. 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 Redemonstration of mild age-related atrophic changes seen in brain parenchyma evident by prominent sulci and dilated ventricles. More[place] and white matter differentiation is intact. The rest of the brain parenchyma appears unremarkable. No established infarction, intracranial, or extra cerebral hemorrhage. No hydrocephalus, midline shifts or mass effect. Normal size and configuration of the cerebral ventricles. Normal cerebellar hemispheres and brainstem. Cerebello-pontine angles are clear. The pituitary gland and both orbits are normal. The osseous structures in the skull base are unremarkable. No definite calvarium fractures. The scanned paranasal sinuses are clear. IMPRESSION: 1. No evidence of intracranial or extracranial hemorrhage. 2. As compared to the prior CT brain dated 02/27/2023, no significant interval change was noted. 3. Redemonstration of senile changes In brain parenchyma with mild microvascular ischemic infarcts in left centrum semiovale, periventricular region, basal ganglia, and left thalamus. Electronically Signed by: Violeta Doll MD. (04/28/2023 01:43:22 [employer])
[2023-04-28 04:34] VITALS: BP 148/106; PULSE 102; RESP 16; O2SAT 97
--- NOTE | 2023-04-28 08:35 | XRAY ---
Indication: Low back pain following fall 3 days ago. Comparison: None 3 view lumbar spine demonstrates 5 lumbar segments in normal alignment with osteopenia, mild/moderate multilevel degenerative spondylosis greatest at L5-S1, and heavy scattered vascular calcifications. No other bony, articular, or soft tissue abnormalities.
== END 2023-04-28 04:30 | disposition short-term general hospital (02) ==
LOC: ED 00:18
DX: I12.0 Hypertensive chronic kidney disease with stage 5 chronic kidney disease or end stage renal disease (principal); E11.22 Type 2 diabetes mellitus with diabetic chronic kidney disease; N18.6 End stage renal disease; N17.9 Acute kidney failure, unspecified; Z99.2 Dependence on renal dialysis; I48.3 Typical atrial flutter; R77.8 Other specified abnormalities of plasma proteins; R41.0 Disorientation, unspecified; R29.6 Repeated falls; M54.9 Dorsalgia, unspecified; Z79.4 Long term (current) use of insulin; Z79.01 Long term (current) use of anticoagulants; Z79.899 Other long term (current) drug therapy
CPT/HCPCS: 36415; 70450; 72100; 80053; 83880; 84484; 85025; 87040; 93005; 93041; 94760; 96374; 99285; 99291; J2270